=== PATIENT | female | born 1985 | race Caucasian/White ===

== ENCOUNTER → 2020-02-03 10:52 | Outpatient (CLI) | payer OTHER, SELFPAY ==
--- NOTE | ~2020-02-03 | XR_ITS ---
XR chest 2V DATE: 02/03/2020 11:24 INDICATION: Chest pain TECHNIQUE: 2 views COMPARISON: 09/18/2018 two-view chest FINDINGS: Normal heart size. No hilar or mediastinal enlargement. No pulmonary infiltrate or consolid ation, pleural effusion or pulmonary vascular congestion or pneumothorax. Right upper quadrant surgic al clips likely secondary to cholecystectomy. IMPRESSION: No active cardiopulmonary disease Reviewed, dictated and finalized at location B.
== END ==
PROVIDERS: PCP Family Medicine; Visit Provider Physician Assistant Medical
DX: R07.9 Chest pain, unspecified (principal)
CPT/HCPCS: 71046

== ENCOUNTER 2020-02-06 06:35 | Outpatient (CLI) | payer OTHER, SELFPAY ==
--- NOTE | 2020-02-06 | EST_ITS ---
Patient Info Name: Sandy Flor Age: 34 years : 1985 Gender: Female Ht: 68 in Wt: 218 lbs BSA: 2.21 m2 HR: 72 bpm BP: 118 / 68 mmHg Heart Rhythm: Sinus Rhythm Exam Date: 02/06/2020 1:41 PM Patient Status: Outpatient Admit Date: 02/06/2020 Staff Ordering Physician: Leydi Baeza Attending Provider: Leydi Baeza Exercise Technologist: Marycruz Landin RDCS Exercise Physician: Gideon Lucas DO Exam Type: CA stress test treadmill Study Info An exercise stress test was performed. Summary 1. 1. Negative Antonio exercise stress test for ischemic ST changes by ECG criteria. 2. 2. Good functional capacity, achieving 12 METs of workload. 3. 3. Appropriate HR response to exercise. 4. 4. Appropriate HR recovery at 1 minute post exercise. 5. 5. No imaging with stress testing. 6. 6. Patient informed of the above results. Protocol: Antonio Rest HR: 68 bpm Peak HR: 174 bpm Rest Sys BP: 118 mmHg Peak Sys BP: 189 mmHg Max Pred HR: 184 bpm % Max Pred HR: 95 % Target HR: 156 bpm Max RPP: 32,886 bpm*mmHg Termination Reason: Reached target heart rate or workload Cardiac Symptoms: Shortness of breath Total Time: 10 min : 0 sec Rest Dunne BP: 68 mmHg Peak Dunne BP: 80 mmHg Total METS: 12.1 Resting ECG Sinus rhythm. Stress ECG No ST changes. Arrhythmias None. Report Signatures
--- NOTE | 2020-02-06 06:40 | ECHO_ITS ---
Patient Info Name: Sandy Flor Age: 34 years : 1985 Gender: Female Ht: 68 in Wt: 218 lbs BSA: 2.21 m2 HR: 72 bpm BP: 118 / 68 mmHg Technical Quality: Fair Exam Date: 02/06/2020 7:06 AM Exam Location: [facility] Pulmonary Patient Status: Outpatient Admit Date: 02/06/2020 Staff Ordering Physician: Leydi Baeza PAC Web Application Tester: Marycruz Landin RDCS Attending Provider: REKHA HICKS DO Referring Physician: Aryan WILSON; Exam Type: CA echo doppler color flow Study Info Indications R07.89 - Other chest pain Complete two-dimensional, color flow and Doppler transthoracic echocardiogram is performed. Summary 1. Left ventricular chamber dimension is normal. 2. Left ventricular systolic function is normal, estimated at 60-65%. 3. The left ventricular diastolic function is normal. 4. E/e' 7 is not elevated. 5. Global longitudinal strain is mildly abnormla t -16.2%. 6. There is trace mitral valve regurgitation. 7. There is trace tricuspid valve regurgitation. 8. No pulmonary hypertension, estimated pulmonary arterial systolic pressure is 24 mmHg. Left Ventricle E/e' 7 is not elevated. Global longitudinal strain is mildly abnormla t -16.2%. Left ventricular chamber dimension is normal. Left ventricular systolic function is normal, estimated at 60-65%. The left ventricular diastolic function is normal. Right Ventricle Right ventricular chamber dimension is normal. Right ventricular systolic function is normal. Left Atria Left atrial chamber dimension is normal. Right Atria Right atrial chamber dimension is normal. Aortic Valve The aortic valve is trileaflet. There is no aortic valve stenosis. There is no aortic valve regurgitation. Pulmonic Valve There is no pulmonic regurgitation. Mitral Valve There is no mitral valve stenosis. There is trace mitral valve regurgitation. Tricuspid Valve There is trace tricuspid valve regurgitation. No pulmonary hypertension, estimated pulmonary arterial systolic pressure is 24 mmHg. Pericardium/Pleural There is no pericardial effusion. Inferior Vena Cava Normal inferior vena cava with >50% collapse upon inspiration consistent with normal right atrial pressure, 5 mmHg. Aorta The aortic root size at the sinus of Valsalva is normal. Left Ventricular Outflow Tract Name Value Normal LVOT 2D LVOT Diameter 2.0 cm LVOT Doppler LVOT Peak Gradient 4 mmHg LVOT Mean Gradient 2 mmHg LVOT VTI 22 cm LVOT VTI/AV VTI Ratio 0.8 LVOT Stroke Volume 69 ml LVOT CO 5.4 l/min LVOT CI 2.4 l/min/m2 Pulmonic Valve Name Value Normal RVOT Doppler RVOT Peak Gradient 3 mmHg
== END 2020-02-06 06:36 | disposition home or self-care (01) ==
LOC: ANHCARD 06:38
PROVIDERS: PCP Family Medicine; Visit Provider Physician Assistant Medical
DX: R01.1 Cardiac murmur, unspecified (principal); R07.9 Chest pain, unspecified; R94.31 Abnormal electrocardiogram [ECG] [EKG]
CPT/HCPCS: 93017; 93306

== ENCOUNTER 2022-10-31 10:00 | Emergency (ER) | payer OTHER, SELFPAY ==
[2022-10-31 10:14] VITALS: BP 148/97; PULSE 72; RESP 16; TEMP 37.6; O2SAT 100
--- NOTE | 2022-10-31 10:46 | ED.WOUNDLAC ---
HPI - Wound/Laceration General Chief Complaint: Wound/Laceration Stated Complaint: ingrown toenail Time Seen by Provider: 10/31/22 11:00 Source: patient and RN notes reviewed Mode of arrival: ambulatory Limitations: no limitations History of Present Illness HPI narrative: 36-year-old female presents with multiple complaints. She reports pain, redness, swelling next to the nail bed of the 4th digit of the right hand, she believes she had an ingrown nail. She also reports a red itchy spot on her abdomen that opened up after shaving several weeks ago. She reports spot on her abdomen is not painful but has a strange smell. Related Data Home Medications Medication Instructions Recorded Confirmed aspirin 81 mg tablet,delayed 81 mg PO DAILY 11/22/21 10/31/22 release (Adult Low Dose Aspirin) Allergies Allergy/AdvReac Type Severity Reaction Status Date / Time amoxicillin Allergy Mild ITCHING Verified 10/31/22 10:56 clavulanic acid Allergy Mild ITCHING Verified 10/31/22 10:56 lisinopril AdvReac Intermediate Headaches Verified 10/31/22 10:56 Review of Systems Review of Systems: CONSTITUTIONAL: Denies malaise, chills, sweats, or fever. SKIN: Reports redness, swelling, tenderness next to the nail bed of the 4th digit of the right hand. Reports a red itchy spot with foul-smelling drainage to her abdomen All systems reviewed & are unremarkable except as noted in HPI and below PMFSH Past Medical History Medical History (Updated 10/31/22 @ 11:16 by Dang De La Garza NP) Adult BMI 33.0-33.9 kg/sq m BMI 29.0-29.9,adult BMI 30.0-30.9,adult BMI 31.0-31.9,adult BMI 32.0-32.9,adult BMI 34.0-34.9,adult Tobacco abuse Surgical History Surgical History H/O: hysterectomy Family History Family History Father Family history of diabetes mellitus in first degree relative Diabetes mellitus Mother Diabetes mellitus Heart disease Hypertension Sibling Obesity Sibling Asthma Obesity Sibling Depression Other Family history of cardiovascular disease Family history of elevated blood lipids Family history of lung cancer Social History Social History (Updated 04/11/22 @ 16:44 by Khadijah Rivers [facility]) Smoking packs per day: 0.25 Smoking cigarettes per day: 5.0 Years smoked: 15 Smoking pack-years: 3.75 Smoking status: Current every day smoker Tobacco type: cigarettes Second hand tobacco smoke exposure: No Smoking end date: 08/22/21 Alcohol intake: never Substance use: never Substance use type: does not use 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 There is no relevant family history pertinent to the presenting complaint Exam Narrative: GENERAL: Well-appearing, well-nourished, and in no acute distress. HEAD: Normocephalic, atraumatic. EYES: PERRLA ENT: Mucous membranes moist NECK: Supple. No lymphadenopathy CHEST: Clear to auscultation. No respiratory distress. HEART: Regular rate and rhythm. SKIN: Warm, dry. 2 cm x 1 cm erythematous area on the abdomen. Erythema, edema, tenderness next to the nail bed of the 4th digit of the right hand consistent with paronychia NEURO: Alert and oriented x3. PSYCH: Normal mood and affect Course Course Emergency Course: Patient is aware of diagnosis, understands and agrees to treatment plan. Anticipatory guidance given. Patient agrees to follow-up as directed and is aware of reasons to seek care at the emergency department. Portions of this record may have been created with voice recognition software Level of Care: Express Care Visit Vital Signs Vital signs: Vital Signs Temperature 99.6 F 10/31/22 10:14 Pulse Rate 72 10/31/22 10:14 Respiratory R
== END 2022-10-31 11:23 | disposition home or self-care (01) ==
PROVIDERS: Emergency Provider Nurse Practitioner; PCP Family Medicine
DX: L03.011 Cellulitis of right finger (principal); B35.4 Tinea corporis; Z87.891 Personal history of nicotine dependence; Z79.82 Long term (current) use of aspirin
CPT/HCPCS: 99213; G0463

== ENCOUNTER 2023-02-16 10:09 | Emergency (ER) | payer OTHER, SELFPAY ==
--- NOTE | ~2023-02-16 | XR_ITS ---
EXAMINATION: XR tibia fibula LT 2V DATE: 02/16/2023 11:03 INDICATION: Left lower leg pain. TECHNIQUE: 2 views of left tibia and fibula were obtained. COMPARISON: None. FINDINGS: Bone alignment is normal. No fracture. Joint spaces are well maintained. IMPRESSION: 1. Normal left tibia and fibula. Reviewed, dictated and finalized at location A.
[2023-02-16 10:35] VITALS: BP 142/92; PULSE 63; RESP 20; TEMP 36.7; O2SAT 100
--- NOTE | 2023-02-16 11:23 | ED.LOWEXIN ---
HPI - Extremity Injury (Lower) General Chief Complaint: Extremity Injury, Lower Stated Complaint: left leg injury Time Seen by Provider: 02/16/23 10:45 Source: patient Mode of arrival: ambulatory Limitations: no limitations History of Present Illness HPI Narrative: Patient is a 37-year-old female that presents with left goldberg pain that started after falling onto a curb on Monday. Reports mild point tenderness but states she has sharp shooting pain with walking. Denies being a runner. Pain has not improved with taking ibuprofen daily. Related Data Home Medications Medication Instructions Recorded Confirmed aspirin 81 mg tablet,delayed 81 mg PO DAILY 11/22/21 12/12/22 release (Adult Low Dose Aspirin) Allergies Allergy/AdvReac Type Severity Reaction Status Date / Time amoxicillin Allergy Mild ITCHING Verified 12/12/22 07:17 clavulanic acid Allergy Mild ITCHING Verified 12/12/22 07:17 lisinopril AdvReac Intermediate Headaches Verified 12/12/22 07:17 Review of Systems Review of Systems: All systems reviewed & are unremarkable except as noted in HPI and below Constitutional: Constitutional: Denies body ache(s), Denies fever(s), Denies headache(s), Denies malaise and Denies weakness Eyes: Eyes: Denies loss of vision ENT: Denies otalgia, Denies headache(s), Denies nasal discharge, Denies sinus pain and Denies sore throat Cardiovascular: Cardiovascular: Denies chest pain, Denies irregular heart rhythm and Denies dyspnea Respiratory: Respiratory: Denies dyspnea Gastrointestinal: Gastrointestinal: Denies abdominal pain, Denies melena, Denies hematochezia, Denies diarrhea, Denies nausea and Denies vomiting Musculoskeletal: Musculoskeletal: Denies back pain, Denies myalgias, Denies arthralgias and Reports other (Left goldberg pain) Integumentary/Breasts: Skin/Breast: Denies pruritus and Denies rash Neurologic: Denies headache(s), Denies loss of vision and Denies weakness Psychiatric: Psychiatric: Reports no additional psychiatric complaints PMFSH Past Medical History Medical History Adult BMI 33.0-33.9 kg/sq m BMI 29.0-29.9,adult BMI 30.0-30.9,adult BMI 31.0-31.9,adult BMI 32.0-32.9,adult BMI 34.0-34.9,adult Tobacco abuse Surgical History Surgical History H/O: hysterectomy Family History Family History Father Family history of diabetes mellitus in first degree relative Diabetes mellitus Mother Diabetes mellitus Heart disease Hypertension Sibling Obesity Sibling Asthma Obesity Sibling Depression Other Family history of cardiovascular disease Family history of elevated blood lipids Family history of lung cancer Social History Social History Smoking packs per day: 0.25 Smoking cigarettes per day: 5.0 Years smoked: 15 Smoking pack-years: 3.75 Smoking status: Former smoker Tobacco type: cigarettes Second hand tobacco smoke exposure: No Smoking end date: 08/22/21 Alcohol intake: never Substance use: never Substance use type: does not use Living arrangements: with family Occupation/Education: occupation 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 There is no relevant family history pertinent to the presenting complaint. Exam Const: General: cooperative, healthy appearing, comfortable, no acute distress and well nourished Nutritional Appearance: well nourished Orientation/consciousness: patient oriented x3 Limitations: no limitations HENMT: Head: normal to inspection, normocephalic and atraumatic Ears: external ears normal Face/Nose/Sinus: Normal external
== END 2023-02-16 11:47 | disposition home or self-care (01) ==
PROVIDERS: Emergency Provider Nurse Practitioner Family; PCP Family Medicine
DX: M79.662 Pain in left lower leg (principal); Z87.891 Personal history of nicotine dependence; Z79.82 Long term (current) use of aspirin
CPT/HCPCS: 73590; 99213; G0463

== ENCOUNTER 2025-01-21 09:54 | Emergency (ER) | payer BC, SELFPAY ==
--- NOTE | ~2025-01-21 | XR_ITS ---
Clinical Indication: Chest pain PA and lateral views of the chest: Comparison: 02/03/2020 Findings: The lungs are clear, without evidence of focal consolidation or pleural effusion. Cardiome diastinal silhouette is within normal limits. Bones and soft tissues are unremarkable. Impression: Normal chest. Reviewed, dictated and finalized at location . Impression: Normal chest.
[2025-01-21 10:04] VITALS: BP 155/97; PULSE 84; RESP 16; TEMP 37; O2SAT 100
--- NOTE | 2025-01-21 10:10 | ECG_ITS ---
Test Date: 2025-01-21 10:25:09 Measurements Intervals [place] Rate: 71 P: 56 UT: 136 QRS: 37 QRSD: 83 T: 28 QT: 401 QTc: 437 Interpretive Statements SINUS RHYTHM WITH SINUS ARRHYTHMIA OTHERWISE NORMAL ECG No previous ECG available for comparison Electronically Signed On 01-22-2025 12:03:46 CDT by Jesse Garcia M.D.
[2025-01-21 10:21] LABS: Basophils Percent Auto 0.3 % (0.2-1.2); Eosinophils Absolute Auto 0.2 K/mm3 (0-0.3); Eosinophils Percent Auto 1.5 % (0-4.4); Hematocrit 41.9 % (37.0-47.0); Hemoglobin 14.6 g/dL (12.0-15.0); Immature Granulocyte Absolute 0.02 K/mm3 (0.00-0.031); Immature Granulocyte Percent A 0.2 % (0-0.5); Lymphocytes Absolute Auto 2.15 K/mm3 (0.9-3.2); Lymphocytes Percent Auto 20.4 % (18.3-44.2); Mean Corpuscular HGB Conc 34.8 g/dl (32-36); Mean Corpuscular Hemoglobin 30.8 pg (26-34); Mean Corpuscular Volume 88.4 fl (80-100); Mean Platelet Volume 9.8 fl (7.4-10.4); Monocytes Absolute Auto 0.5 K/mm3 (0.1-0.6); Monocytes Percent Auto 5.1 % (2.6-8.5); Neutrophils Absolute Auto 7.7 K/mm3 (1.3-6.7); Neutrophils Percent Auto 72.5 % (45.5-73.1); Platelet Count Result 258 k/mm3 (150-375); Red Blood Count 4.74 M/mm3 (4.2-5.4); Red Cell Distribution Width 11.6 % (11.5-14.5); White Blood Count 10.6 K/mm3 (4.5-10.0)
[2025-01-21 10:32] LABS: INR 0.9; Prothrombin Time 12.7 Seconds (11.1-14.7)
[2025-01-21 10:33] LABS: Partial Thromboplastin Time 25.4 Seconds (22.3-36.8)
[2025-01-21 10:35] LABS: Alanine Aminotransferase 22 U/L (6-35); Albumin Level 4.5 g/dL (3.5-5.1); Alkaline Phosphatase 55 U/L (38-126); Anion Gap 11 mmol/L (4-12); Aspartate Amino Transferase 21 U/L (14-36); Bilirubin,Total 0.3 mg/dL (0.2-1.3); Blood Urea Nitrogen 7 mg/dL (7-17); Calcium 9.4 mg/dL (8.4-10.2); Carbon Dioxide 25 mmol/L (22-30); Chloride 102 mmol/L (98-107); Estimated CRCL calculation 78 ml/min; Estimated Glomerular Filt Rate 60; Glucose 100 mg/dL (65-110); Lipase 43 U/L (23-300); Potassium 3.8 mmol/L (3.4-5.0); Sodium 138 mmol/L (137-145)
[2025-01-21 10:47] LABS: Troponin I < 0.012 ng/mL (0.000-0.034)
--- OUTSIDE RECORDS SUMMARY | 2025-01-21 10:57 | XMS_ITS | Clinical Summary ---
Author Organization [facility] Address [address] [place] [address] Care Team Providers Care Loading Unit Operator Seating Name Role Phone None, Provider MD Primary Care Provider Unavaila ble Allergies No known active allergies Medications albuterol sulfate HFA 108 (90 Base) MCG/ACT inhaler Inhale 2 puffs into the lungs every 6 (six) hours as needed for Wheezing. 18 g 10/27/2024 Active Encounters Date Type Department Care Team Description 10/27/2024 9:18 AM CAFETERIA CLERK - 10/27/2024 10:49 AM CAFETERIA CLERK Emergency [facility] Emergency Room [id number] [place] [address] Grupo Causey MD URI Discharge Disposition: Home or Self Care (Routine Discharge) 10/27/2024 Travel from Last 3 Months Social History Tobacco Use Types Packs/Day Years Used Date Smoking Tobacco: Never Passive Smoke Exposure: Never Smokeless Tobacco: Never Tobacco Cessation:Counseling Given: Not Answered Alcohol Use Standard Drinks/Week Comments Not Currently 0 (1 standard drink = 0.6 oz pur e alcohol) Comments Unknown Sex and Gender Information Value Date Recorded Sex Assigned at Not on file Legal Sex Female 6:23 PM CDT Gender Identity Not on file Sexual Orientation Not on file Last Filed Vital Signs Vital Sign Reading Time Taken Comments Blood Pressure 136/77 10/27/2024 9:24 AM CAFETERIA CLERK Pulse 88 10/27/2024 9:24 AM CAFETERIA CLERK Temperature 37.8 C (100 F) 10/27/2024 9:24 AM CAFETERIA CLERK Respiratory Rate 18 10/27/2024 9:24 AM CAFETERIA CLERK Oxygen Saturation 99% 10/27/2024 9:24 AM CAFETERIA CLERK Inhaled Oxygen Concentration - - Weight 80.7 kg (177 lb 14.6 oz) 10/27/2024 9:24 AM CAFETERIA CLERK Height 168.9 cm (5' 6.5 ) 10/27/2024 9:24 AM CAFETERIA CLERK Body Mass Index 28.29 10/27/2024 9:24 AM CAFETERIA CLERK Plan of Treatment Health Maintenance Due Date Last Done Comments Annual Physical 1986 DTaP, Tdap and Td Vaccines ( 1 - Tdap) 2002 Hepatitis B Vaccines (1 of 3 - 19+ 3-dose series) 2002 COVID-19 Vaccine (2023-2 5 season) 2024 07/19/2021, 06/19/2021 Influenza Adult (#1) 2024 08/06/2023, 08/07/2022, 08/06/2021 Mammogram Screening 09/10/2026 09/10/2024 Hepatitis C Completed 10/18/2024, 10/18/2024 HPV Vaccines Aged Out No longer eligi ble based on patient's age to complete this topic Meningococcal B Vaccine Aged Out No l onger eligible based on patient's age to complete this topic Meningococcal Vaccine Aged Out No aubrie miguel angel eligible based on patient's age to complete this topic Pneumococcal Vaccine: Pediatrics (0 to 5 Years) and At-Risk Patients (6 to 64 Years) Aged Out No longer eligible b ased on patient's age to complete this topic RSV Immunizations Under 20 Months Aged Out No longer eligible b ased on patient's age to complete this topic Procedures Procedure Name Priority Date/Time Associated Diagnosis Comments XR CHEST PA+LAT STAT 10/27/2024 10:22 AM CAFETERIA CLERK INFLUENZA A & B STAT 10/27/2024 9:23 AM CAFETERIA CLERK CORONAVIRUS (COVID 19) STAT 10/27/2024 9:23 AM CAFETERIA CLERK from Last 3 Months Results * XR CHEST PA+LAT (10/27/2024 10:22 AM CAFETERIA CLERK) Anatomical Region Laterality Modality Chest Radiographic Lissa ging 10/27/2024 10:2 4 AM CAFETERIA CLERK Impressions 10/27/2024 10:26 AM CAFETERIA CLERK IMPRESSION: Evolving/developing pneumonia with patchy right middle lobe airspace opacities. No focal consolidation or effusion. Referred By: Interpreted By: Mata Newman MD, 10/27/2024 10:24 AM Narrative 10/27/2024 10:26 AM CAFETERIA CLERK [address] [place] [address] EXAMINATION: XR CHEST PA+LAT INDICATIONS: Cough, SOB COMPARISON: NONE FINDINGS: Frontal and lateral chest radiographs demonstrate normal lung expansion with patchy right infrahilar airspace opacities which partially obscure the right heart margin and right hemidiaphragm. No consolidation, effusion, or pneumothorax. No bulky hilar adenopathy. Heart size is normal. Cholecystectomy clips within the right upper quadrant. No acute or aggressive osseous abnormality. Procedure Note Mata Newman MD - 10/27/2024 [facility] [address] [place] [address] EXAMINATION: XR CHEST PA+LAT INDICATIONS: Cough, SOB COMPARISON: NONE FINDINGS: Frontal and lateral chest radiographs demonstrate normal lung expansionwith patchy right infrahilar airspace opacities which partially obscurethe right heart margin and right hemidiaphragm. No consolidation, effusion, or pneumothorax. No bulky hilar adenopathy. Heart size is normal. Cholecystectomy clips within the right upper quadrant. No acute or aggressive osseous abnormality. IMPRESSION: Evolving/developing pneumonia with patchy right middle lobeairspace opacities. No focal consolidation or effusion. Referred By: Interpreted By: Mata Newman MD, 10/27/2024 10:24 AM Grupo Causey MD GENERAL IMAGING Final R esult * CORONAVIRUS (COVID-19) MOLECULAR (10/27/2024 9:23 AM CAFETERIA CLERK) CORONAVIRUS SARS COV 2 RNA NEGATIVE NEGATIVE 10/27/2024 10:11 AM CAFETERIA CLERK [facility] Comment: NEGATIVE RESULTS DO NOT RULE OUT COVID 19 AND SHOULD NOT BE USED THE SOLE BASIS FOR TREATMENT OR PATIENT MANAGEMENT DECISIONS, INCLUDING INFECTION CONTROL DECISIONS. NEGATIVE RESULTS SHOULD BE CONSIDERED IN THE CONTEXT OF A PATIENT'S RECENT EXPOSURES, HISTORY AND THE PRESENCE OF CLINICAL SIGNS AND SYMPTOMS CONSISTENT WITH COVID 19. THE ID NOW COVID-19 2.0 TEST HAS BEEN AUTHORIZED BY THE FDA UNDER EAU FOR USE BY AUTHORIZED LABORATORIES. PERFORMED BY NUCLEIC ACID AMPLIFICATION FOR MOLECULAR QUALITATIVE DETECTION OF SARS-COV-2. SPECIMEN TYPE NASAL 10/27/2024 9:23 AM CAFETERIA CLERK [facility] NASOPHARYNGEAL SWAB / Unknown 10/27/2024 9:23 AM CAFETERIA CLERK Grupo Causey MD MICROBIOLOGY - GENERAL ORDERABLES Final Result Performing Organization Address [facility]/ZIP Co de Phone Number [facility] [address] [place] [address], [place] [phone] * (ABNORMAL) INFLUENZA A & B (10/27/2024 9:23 AM CAFETERIA CLERK) SPECIMEN TYPE NASOPHARYNGEAL SWAB 10/27/2024 10:02 AM CAFETERIA CLERK [facility] INFLUENZA A NEGATIVE NEGATIVE 10/27/2024 10:11 AM CAFETERIA CLERK [facility] INFLUENZA B POSITIVE(A) NEGATIVE 10/27/2024 10:11 AM CAFETERIA CLERK [facility] NASOPHARYNGEAL SWAB / Unknown 10/27/2024 9:23 AM CAFETERIA CLERK Grupo Causey MD MICROBIOLOGY - GENERAL ORDERABLES Final Result Performing Organization Address [facility]/ZIP Co de Phone Number [facility] [address] [place] [address], [place] [phone] from Last 3 Months Insurance Care Teams Loading Unit Operator Seating Relationship Specialty Start Date End Date None, Provider, PCP - General UNKNOWN PHYSICIAN SPECIALTY 10/27/24
--- OUTSIDE RECORDS SUMMARY | 2025-01-21 10:57 | XMS_ITS | Encounter Summary ---
Author Organization [facility] Address 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 Gender Identity Not on file Sexual Orientation Not on file documented as of this encounter Plan of Treatment Not on file documented as of this encounter Procedures Procedure Name Priority Date/Time Associated Diagnosis Comments HEMOGLOBIN AND HEMATOCRIT Routine 06/15/2005 6:49 AM CDT POC , URINE Routine 06/15/2005 6:49 AM CDT documented in this encounter Results * POC , URINE (06/15/2005 6:49 AM CDT) HCG QUAL URINE Negative Negative INTER FACE SYSTEM SPECIFIC GRAVITY UA 1.020 1.001 - 1.035 INTERFACE SYSTEM 06/15/2005 6:49 AM CDT Jaime Sweeney MD POINT OF CARE TESTING Final Result INTERFACE SYSTEM Refer to clinic/hospital department * HEMOGLOBIN AND HEMATOCRIT (06/15/2005 6:49 AM CDT) HEMOGLOBIN 14.0 11.8 - 14.8 g/dL INTERFACE SYSTEM HEMATOCRIT 39.7 35.5 - 44.0 % INTERFACE SYSTEM 06/15/2005 6:49 AM CDT Jaime Sweeney MD HEMATOLOGY ORDERABLES Final Result Performing Organization Address [facility] Co de Phone Number INTERFACE SYSTEM Refer to clinic/hospital department documented in this encounter Visit Diagnoses Diagnosis Hypertrophy of breast- Primary documented in this encounter Care Teams Social And Political Studies Professor Relationship Specialty Start Date End Date Domenic Elliott MD [address] [place] [address] PCP - General Family Practice 02/18/20 documented as of this encounter
--- OUTSIDE RECORDS SUMMARY | 2025-01-21 10:57 | XMS_ITS | Clinical Summary ---
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 Gender Identity Not on file Sexual Orientation Not on file Plan of Treatment Health Maintenance Due Date Last Done Comments Hepatitis C Virus (HCV) Screening 1985 TdaP Immunization 1985 Hepatitis B Immunization (1 of 3 - 19+ 3-dose series) 2002 Pap Smear 2004 Cervical Cancer Screening (CCS) 2013 HPV/Cotest 2013 Discussion re Starting/Frequ ency of Mammograms 2023 Influenza Immunization (#1) 2024 SARS-COV-2 Immunization (2023- season) 2024 Respiratory Syncytial Virus (RSV) Immunization (Adult) (1 - 1-dose 75+ series) 2058 Meningococcal Immunization (ACWY) Aged Out No longer eligible based on patient's age to complete this topic Pneumococcal Immunization Combined Aged Out No longer eligible based on patient's age to complete this topic Rotavirus Immunization Aged Out No lo nger eligible based on patient's age to complete this topic
--- OUTSIDE RECORDS SUMMARY | 2025-01-21 10:57 | XMS_ITS | Clinical Summary ---
Author Organization [address] lt Address [address] [place] [address] Care Team Providers Care Tool Distributor Name Role Phone Nickolas Tony MD Primary Care Provider [phone] Allergies No known active allergies Medications metoprolol XL (TOPROL-XL) 50 mg extended release tabletIndicatio ns:Hypertension , essential Take 1 tablet (50 mg total) by mouth daily 90 tablet 4 03/27/2023 Active amLODIPine (NORVASC) 5 mg tabletIndicatio ns:Hypertension , essential Take 1 tablet (5 mg total) by mouth daily 90 tablet 4 03/27/2023 Active aspirin 81 mg enteric coated tablet Take 1 tablet (81 mg total) by mouth daily Active ergocalciferol (VITAMIN D) 50,000 unit capsuleIndicati ons:Vitamin D deficiency Take 1 capsule (50,000 Units total) by mouth once a week 12 capsule 4 12/19/2023 Active buPROPion XL (WELLBUTRIN XL) 150 mg 24 hr tabletIndicatio ns:Anxiety Take 1 tablet (150 mg total) by mouth every morning 90 tablet 1 06/17/2024 Active fluconazole (Diflucan) 150 mg tablet 1 tablet, one time only, may repeat once after 4 days 2 tablet 11/01/2024 Active Active Problems Problem Noted Date Diagnosed Date Low TSH level 10/18/2024 Assessment & Plan (10/18/2024 12:10 PM OPERATIONS CLERK): Abnormality seen on last work up in 12/30, will repeat at this time and follow up on results Polycythemia 01/16/2024 Annual physical exam 04/26/2023 Assessment & Plan (04/26/2023 10:30 AM CDT): Voices no concerns or complaints Hypertension, essential 03/27/2023 Assessment & Plan (10/18/2024 9:03 AM OPERATIONS CLERK): - Stable and at goal - Continue Metoprolol 50 mg daily and Amlodipine 5 mg daily Assessment & Plan (01/16/2024 2:40 PM CDT): Stable, well controlled BP at goal at visit; 112/76 Continue Metoprolol 50 mg daily and Amlodipine 5 mg daily Assessment & Plan (12/15/2023 1:00 PM OPERATIONS CLERK): Stable, well controlled BP at goal at visit; 122/78 Continue Metoprolol 50 mg daily and Amlodipine 5 mg daily Assessment & Plan (03/27/2023 2:15 PM CDT): Continue Toprol 50 mg and amlodipine 5 mg daily Anxiety 03/27/2023 Assessment & Plan (10/18/2024 9:02 AM OPERATIONS CLERK): - much improved, no issues at this time - continue Wellbutrin 150 mg daily Assessment & Plan (01/16/2024 2:38 PM CDT): Stop Lexapro; felt numb; no feelings/emotions Did not like how Xanax made her feel; BuSpar made her extremely tired Start Wellbutrin 150 mg daily Follow up 8 weeks Assessment & Plan (12/15/2023 12:59 PM OPERATIONS CLERK): Not well controlled, has been having increased anxiety Feels like nothing is going right; has become more emotional Has some work stressors, family stressors have improved Start Lexapro 10 mg daily and Xanax 0.25 mg TID PRN; increase Buspar 10 mg TID PRN Follow up 4 weeks Assessment & Plan (04/26/2023 10:30 AM CDT): Stable, well-controlled Continue BuSpar 5 mg t.i.d. anxiety Follow-up six-month Assessment & Plan (03/27/2023 2:16 PM CDT): BuSpar 5 mg t.i.d. p.r.n. for anxiety Follow-up in 1 month Resolved Problems Problem Noted Date Diagnosed Date Resolved Date Non-recurrent acute suppurat julissa otitis media of right ear without spontaneous rupture of tympanic membrane 03/27/2023 04/26/2023 Assessment & Plan (03/27/2023 2:13 PM CDT): Rx for Augmentin sent to pharmacy Bacterial sinusitis 03/27/2023 04/26/20 Assessment & Plan (03/27/2023 2:13 PM CDT): Rx for Augmentin sent to pharmacy Antibiotic-induced yeast infection 03/27/2023 04/26/2023 Assessment & Plan (03/27/2023 2:14 PM CDT): Rx for fluconazole for antibiotic induced yeast infection sent to pharmacy Encounters Date Type Department Care Team Description 11/01/2024 8:15 AM OPERATIONS CLERK E-Visit [facility] Virtual Care [address] [place] [phone] Essie Ramirez NP Your Medications 11/01/2024 Patient Self-Triage [facility]/ Physicians [address] [place] [id number] Mychart, Generic Provider from Last 3 Months Immunizations Immunization Administration Dates Next Due Influenza, Unspecified 10/18/2024(Deferr ed: Patient Refused),08/06/2023,03/27/2023(Deferred: Patient Refused),08/07/2022,08/06/2021 Surgical History Surgery Date Site/Laterality Comments CHOLECYSTECTOMY HYSTERECTOMY SECTION REDUCTION MAMMAPLASTY Medical History Medical History Date Comments Hypertension Diverticulitis Polycythemia Family History Medical History Relation Name Comments Diabetes Father Breast cancer Maternal Grandmother Pancreatic cancer Maternal Grandmother Diabetes Mother Heart disease Mother Hypertension Mother Ovarian cancer Mother Thyroid disease Mother Relation Name Status Comments Father Maternal Grandmother Mother Social History Tobacco Use Types Packs/Day Years Used Date Smoking Tobacco: Former Cigarettes Q uit: 2019 Humiliation, Afraid, Rape, and Kick questionnair e Answer Date Recorded Within the last year, have y ou been afraid of your partner or ex-partner? No 04/26/2023 Within the last year, have y ou been humiliated or emotionally abused in other ways by your partner or ex-partner? No Within the last year, have y ou been kicked, hit, slapped, or otherwise physically hurt by your partner or ex-partner? No 04/26/2023 Within the last year, have y ou been raped or forced to have any kind of sexual activity by your partner or ex-partner? No 04/26/2023 Social Connection and Isolat ion Panel [NHANES] Answer Date Recorded In a typical week, how many times do you talk on the phone with family, friends, or neighbors? More than three times a week 04/26/2023 How often do you get togethe r with friends or relatives? More than three times a week 04/26/2023 How often do you attend chur ch or episcopalian services? More than 4 times per year 04/26/2023 Do you belong to any clubs o r organizations such as pentecostal groups, unions, fraternal or athletic groups, or school groups? Yes 04/26/2023 How often do you attend meet ings of the clubs or organizations you belong to? More than 4 times per year 04/26/2023 Are you , , di vorced, , never , or living with a partner? 04/26/2023 AUDIT-C Answer Date Recorded Q1: How often do you have a drink containing alc ohol? Monthly or less 04/26/2023 Q2: How many drinks containi ng alcohol do you have on a typical day when you are drinking? 1 or 2 04/26/2023 Q3: How often do you have si x or more drinks on one occasion? Never 04/26/2023 Overall Financial Resource Strain (CARDIA) Answe r Date Recorded How hard is it for you to pa y for the very basics like food, housing, medical care, and heating? Not hard at all 04/26/2023 PHQ-2 Answer Date Recorded PHQ-2 Total Score (If total score is 3 or more points, staff should administer the PHQ-9) 0 10/18/2024 [facility] - Occupational Stress Questionnaire Answer Date Recorded Do you feel stress - tense, restless, nervous, or anxious, or unable to sleep at night because your mind is troubled all the time - these days? Only a little 04/26/2023 Exercise Vital Sign Answer Date Recorde d On average, how many days pe r week do you engage in moderate to strenuous exercise (like a brisk walk)? 3 days 04/26/2023 On average, how many minutes do you engage in exercise at this level? 50 min 04/26/2023 Hunger Vital Sign Answer Date Recorded Within the past 12 months, y ou worried that your food would run out before you got the money to buy more. Never true 04/26/20 23 Within the past 12 months, t he food you bought just didn't last and you didn't have money to get more. Never true 04/26/2023 PRAPARE - Transportation Answer Date Re corded In the past 12 months, has l ack of transportation kept you from medical appointments or from getting medications? No 04/07 In the past 12 months, has l ack of transportation kept you from meetings, work, or from getting things needed for daily living? No 04/26/2023 Housing Stability Vital Sign Answer Garett e Recorded In the last 12 months, was t here a time when you were not able to pay the mortgage or rent on time? No 04/26/2023 In the last 12 months, how many places have you lived? 1 04/26/2023 In the last 12 months, was t here a time when you did not have a steady place to sleep or slept in a senior care (including now)? No 04/26/2023 Comments No Sex and Gender Information Value Date Recorded Sex Assigned at Not on file Legal Sex Female 10:05 AM OPERATIONS CLERK Gender Identity Female 09/05/2024 5:13 PM CDT Sexual Orientation Straight 09/05/2024 5: 13 PM CDT Obstetrics History Para Term AB IAB SAB Ectopic Multiple Livin g Live Births 2 2 2 Date Outcome GA Total Labor Labor/2nd/3rd Weight Sex Type Anes PTL Leticia A1 A5 Name Clin Term Term Last Filed Vital Signs Vital Sign Reading Time Taken Comments Blood Pressure 120/72 10/18/2024 8:29 AM OPERATIONS CLERK Pulse 75 10/18/2024 8:29 AM OPERATIONS CLERK Temperature 36.4 C (97.5 F) 10/18/2024 8:29 AM OPERATIONS CLERK Respiratory Rate 16 01/16/2024 1:57 PM CDT Oxygen Saturation 98% 10/18/2024 8:29 AM OPERATIONS CLERK Inhaled Oxygen Concentration - - Weight 90.7 kg (200 lb) 10/18/2024 8:29 AM OPERATIONS CLERK Height 172.7 cm (5' 7.99 ) 10/18/2024 8:29 AM CS T Body Mass Index 30.42 10/18/2024 8:29 AM OPERATIONS CLERK Plan of Treatment Health Maintenance Due Date Last Done Comments DTaP/Tdap/Td Vaccine (1 - Tdap) 1994 Covid-19 Vaccine (3 - season) 2024 07/19/2021, 06/19/2021 Influenza Vaccine (#1) 2025 , 08/06/2023, 08/07/2022, Additional history exists Postponed from 07/07/2024 (Patient declined, but will receive in the future) Breast Cancer Screening-Mammogram 09/10/2025 09/10/2024 Depression Screening 10/18/2025 10/18/2024, 01/16/2024, 12/15/2023, Additional history exists Regular Well Visit/Exam 18-64 10/18/2025 10/18/2024, 04/26/2023, 03/27/2023 Hepatitis B Screening Completed 10/18/2024 Hepatitis C Screening Completed 10/18/2024 HPV Vaccines Aged Out No longer eligi ble based on patient's age to complete this topic Pneumococcal vaccine <65 Aged Out No longer eligible based on patient's age to complete this topic Varicella Vaccines Discontinued Procedures Procedure Name Priority Date/Time Associated Diagnosis Comments HEPATITIS C ANTIBODY Routine 10/18/2024 8:55 AM OPERATIONS CLERK Encounter for hepatitis C screening test for low risk patient SCREENING MAMMOGRAM BILATERAL W LILY Schedule Routine, Read Routine (OP Routine) 09/10/2024 11:54 AM OPERATIONS CLERK Screening mammogram for breast cancer from Last 3 Months or Most Recently Relevant to Health Maintenance Results * Hepatitis C antibody Blood (10/18/2024 8:55 AM OPERATIONS CLERK) Hep C Ab Nonreactive Nonreactive Comment: Interpretive Data Nonreactive: Antibodies to HCV not detected. Does NOT exclude the possibility of recent exposure to HCV. Equivocal: Equivocal for HCV antibodies. Supplemental molecular testing will be automatically performed to determine infection status in accordance with current CDC screening recommendations. Reactive: Positive for HCV antibodies. This may represent current or past HCV infection. Supplemental molecular testing will be automatically performed to determine current infection status in accordance with current CDC screening recommendations. Interpretive data was last revised on 2020. Blood 10/18/2024 8:55 AM OPERATIONS CLERK 10/18/2024 4:21 PM OPERATIONS CLERK us Nickolas Tony MD LAB MICROBIOLOGY - GENERA L ORDERABLES Final Result [facility] [address] Department [place] [address] * SCREENING MAMMOGRAM BILATERAL W LILY (09/10/2024 11:54 AM OPERATIONS CLERK) Anatomical Region Laterality Modality Breast Bilateral Mammography 09/10/2024 12:2 4 PM OPERATIONS CLERK Impressions 09/10/2024 12:24 PM OPERATIONS CLERK No evidence of malignancy in either breast. FINAL ASSESSMENT: BI-RADS Category 1: Negative. RECOMMENDATION: Recommend return for annual screening mammogram in 12 months. Recommend annual screening breast MRI given significant family history of mother and grandmother diagnosed with breast and ovarian cancer. Electronically signed by: NELLY VALDEZ MD Narrative 09/10/2024 12:24 PM OPERATIONS CLERK EXAMINATION: BILATERAL SCREENING MAMMOGRAM COMPARISON: Baseline study TECHNIQUE: Full-field 2D and digital breast tomosynthesis (DBT) images were obtained. CAD was utilized. BREAST PARENCHYMAL COMPOSITION: There are scattered areas of fibroglandular density. FINDINGS: There is no suspicious mass, calcification, or distortion in either breast. Consuelo Adam NP IMG MAMMO PROCEDURES Final Resul t from Last 3 Months or Most Recently Relevant to Health Maintenance Insurance [facility] CHOICE PLUS [employer]OS [employer] OOS WORKERS COMPENSATION GENERIC ESIS WC Care Teams Tool Distributor Relationship Specialty Start Date End [place] [address] PCP - General Family Medicine 10/18/24
--- OUTSIDE RECORDS SUMMARY | 2025-01-21 10:57 | XMS_ITS | Referral Summary ---
Author Organization [address] lt Address [address] [place] [address] Care Team Providers Care Cryogenics Repairer Name Role Phone Nickolas Tony MD Primary Care Provider [phone] Encounters Date Type Department Care Team Description 11/01/2024 8:15 AM SHELTER DIRECTOR E-Visit [facility] Virtual Care [address] [place] [phone] Essie Ramirez NP Your Medications 11/01/2024 Patient Self-Triage [facility]/ Physicians [address] [place] [address] Mychart, Generic Provider from Last 3 Months Allergies No known active allergies Medications metoprolol [...] 10/18/2024 Assessment & Plan (10/18/2024 12:10 PM SHELTER DIRECTOR): Abnormality seen on last work up in 12/30, will repeat at this time and follow up on results Polycythemia 01/16/2024 Annual physical exam 04/26/2023 Assessment & Plan (04/26/2023 10:30 AM CDT): Voices no concerns or complaints Hypertension, essential 03/27/2023 Assessment & Plan (10/18/2024 9:03 AM SHELTER DIRECTOR): - Stable and at goal - Continue Metoprolol 50 mg daily and Amlodipine 5 mg daily Assessment & Plan (01/16/2024 2:40 PM CDT): Stable, well controlled BP at goal at visit; 112/76 Continue Metoprolol 50 mg daily and Amlodipine 5 mg daily Assessment & Plan (12/15/2023 1:00 PM SHELTER DIRECTOR): Stable, well controlled BP at goal at visit; 122/78 Continue Metoprolol 50 mg daily and Amlodipine 5 mg daily Assessment & Plan (03/27/2023 2:15 PM CDT): Continue Toprol 50 mg and amlodipine 5 mg daily Anxiety 03/27/2023 Assessment & Plan (10/18/2024 9:02 AM SHELTER DIRECTOR): - much improved, no issues at this time - continue Wellbutrin 150 mg daily Assessment & Plan (01/16/2024 2:38 PM CDT): Stop Lexapro; felt numb; no feelings/emotions Did not like how Xanax made her feel; BuSpar made her extremely tired Start Wellbutrin 150 mg daily Follow up 8 weeks Assessment & Plan (12/15/2023 12:59 PM SHELTER DIRECTOR): Not well controlled, has been having increased [...] antibiotic induced yeast infection sent to pharmacy Immunizations Immunization Administration Dates Next Due Influenza, Unspecified 10/18/2024(Deferr ed: Patient Refused),08/06/2023,03/27/2023(Deferred: Patient Refused),08/07/2022,08/06/2021 Social History Tobacco Use Types Packs/Day Years [...] week 04/26/2023 How often do you attend caro center or tenriism services? More than 4 times per year 04/26/2023 Do you belong to any clubs o r organizations such as evangelical groups, unions, fraternal or athletic groups, or [...] staff should administer the PHQ-9) 0 10/18/2024 [facility] - Occupational Stress [...] place to sleep or slept in a halfway (including now)? No 04/26/2023 Comments No Sex and Gender Information Value Date Recorded Sex Assigned at Not on file Legal Sex Female 10:05 AM SHELTER DIRECTOR Gender Identity Female 09/05/2024 5:13 PM CDT Sexual Orientation Straight 09/05/2024 5: 13 PM CDT Last Filed Vital Signs Vital Sign Reading Time Taken Comments Blood Pressure 120/72 10/18/2024 8:29 AM SHELTER DIRECTOR Pulse 75 10/18/2024 8:29 AM SHELTER DIRECTOR Temperature 36.4 C (97.5 F) 10/18/2024 8:29 AM SHELTER DIRECTOR Respiratory Rate 16 01/16/2024 1:57 PM CDT Oxygen Saturation 98% 10/18/2024 8:29 AM SHELTER DIRECTOR Inhaled Oxygen Concentration - - Weight 90.7 kg (200 lb) 10/18/2024 8:29 AM SHELTER DIRECTOR Height 172.7 cm (5' 7.99 ) 10/18/2024 8:29 AM CS T Body Mass Index 30.42 10/18/2024 8:29 AM SHELTER DIRECTOR Plan of Treatment Not on file Procedures Procedure Name Priority Date/Time Associated Diagnosis Comments HEPATITIS C ANTIBODY Routine 10/18/2024 8:55 AM SHELTER DIRECTOR Encounter for hepatitis C screening test for low risk patient SCREENING MAMMOGRAM BILATERAL W LILY Schedule Routine, Read Routine (OP Routine) 09/10/2024 11:54 AM SHELTER DIRECTOR Screening mammogram for breast cancer from Last 3 Months or Most Recently Relevant to Health Maintenance Results * Hepatitis C antibody Blood (10/18/2024 8:55 AM SHELTER DIRECTOR) Hep C Ab Nonreactive Nonreactive Comment: Interpretive [...] revised on 2020. Blood 10/18/2024 8:55 AM SHELTER DIRECTOR 10/18/2024 4:21 PM SHELTER DIRECTOR us Nickolas Tony MD LAB MICROBIOLOGY - GENERA L ORDERABLES Final Result [facility] [address] [place] [address] * SCREENING MAMMOGRAM BILATERAL W LILY (09/10/2024 11:54 AM SHELTER DIRECTOR) Anatomical Region Laterality Modality Breast Bilateral Mammography 09/10/2024 12:2 4 PM SHELTER DIRECTOR Impressions 09/10/2024 12:24 PM SHELTER DIRECTOR No evidence of malignancy in either breast. FINAL ASSESSMENT: BI-RADS Category 1: Negative. RECOMMENDATION: Recommend return for annual screening mammogram in 12 months. Recommend annual screening breast MRI given significant family history of mother and grandmother diagnosed with breast and ovarian cancer. Electronically signed by: NELLY VALDEZ MD Narrative 09/10/2024 12:24 PM SHELTER DIRECTOR EXAMINATION: BILATERAL SCREENING MAMMOGRAM COMPARISON: Baseline study TECHNIQUE: Full-field 2D and digital breast tomosynthesis (DBT) images were obtained. CAD was utilized. BREAST PARENCHYMAL COMPOSITION: There are scattered areas of fibroglandular density. FINDINGS: There is no suspicious mass, calcification, or distortion in either breast. us Consuelo Adam NP IMG MAMMO PROCEDURES Final Resul t from Last 3 Months or Most Recently Relevant to Health Maintenance Insurance [facility] CHOICE PLUS * Guarantor: Sandy Flor Account Type Relation to Patient Date of Phone Billing Address Personal/Family Self 1985 [address] [place] [address] [email or web address] OOS WORKERS COMPENSATION GENERIC ESIS WC Care Teams Cryogenics Repairer Relationship Specialty Start Date [place] [address] PCP - General Family Medicine 10/18/24
--- OUTSIDE RECORDS SUMMARY | 2025-01-21 10:57 | XMS_ITS | Clinical Summary ---
Author Organization [email or web address] Address [address] [place] [address] Phone Care Team Providers Care Customer Development Representative Name Role Phone Domenic Elliott MD Primary Care Provider [phone] Allergies No known active allergies Medications buPROPion HCL (WELLBUTRIN SR) 150 mg Sustained Release 12 hour tablet 04/10/2021 Active metoprolol succinate (TOPROL XL) 50 mg Extended Release 24 hour tablet 04/10/2021 Active aspirin (ECOTRIN EC) 81 mg Tablet, Delayed Release (E.C.) Take 81 mg by mouth daily. Active Active Problems Problem Noted Date Diagnosed Date Erythrocytosis 03/25/2020 Benign hypertension 03/25/2020 Family History Medical History Relation Name Comments Diabetes Father Heart Disease Mother Relation Name Status Comments Brother 1 Alive Brother 2 Alive Daughter 1 Alive Daughter 2 Alive Father Alive Mother Alive Sister Alive Social History Tobacco Use Types Packs/Day Years Used Date Smoking Tobacco: Every Day Cigarettes 0.5 15 Smokeless Tobacco: Never Comments:Pt. smoked 3 cigari ttes a day Alcohol Use Standard Drinks/Week Comments Never 0 (1 standard drink = 0.6 oz pur e alcohol) Comments No Sex and Gender Information Value Date Recorded Sex Assigned at Not on file Legal Sex Female 5:10 AM SOLAR ENGINEER Gender Identity Not on file Sexual Orientation Not on file Last Filed Vital Signs Vital Sign Reading Time Taken Comments Blood Pressure 142/84 04/14/2021 4:00 PM CDT Pulse 78 04/14/2021 4:00 PM CDT Temperature 37.2 C (99 F) 04/14/2021 4:00 PM CDT Respiratory Rate - - Oxygen Saturation 97% 04/14/2021 4:00 PM CDT Inhaled Oxygen Concentration - - Weight 96 kg (211 lb 9.6 oz) 04/14/2021 4:00 PM CDT Height 172.7 cm (5' 8 ) 04/14/2021 4:00 PM CDT Body Mass Index 32.17 04/14/2021 4:00 PM CDT Plan of Treatment Health Maintenance Due Date Last Done Comments DTAP/TDAP/TD VACCINES (1 - Tdap) 2002 HEPATITIS B VACCINES (1 of 3 - 19+ 3-dose series) 2002 PNEUMOCOCCAL VACCINE 0-49 YE ARS (1 of 2 - PCV) 2002 CERVICAL CANCER SCREENING 2013 BREAST CANCER SCREENING 2023 INFLUENZA VACCINE (#1) 2024 HPV VACCINES Aged Out No longer eligi ble based on patient's age to complete this topic Insurance [facility] [address] [address] Care Teams Customer Development Representative Relationship Specialty Start Date End Date Domenic Elliott MD [address] [place] [id number] PCP - General Family Practice 02/18/20
--- OUTSIDE RECORDS SUMMARY | 2025-01-21 10:57 | XMS_ITS | Clinical Summary ---
Author Organization [facility] Address [address] [place] [address] Care Team Providers Care Petroleum Refinery Operator Name Role Phone Unavailable Primary Care Provider Unavailabl e Source Comments [facility],non-owned Affiliates and Associated Physician Practices is amultiple site organization consisting of ambulatory clinics and hospital sitesin [place], [place], [place] and [place]. This disclosure is being madepursuant to the Care Everywhere program and may not contain all information available regarding this patient. Last updated 18[facility] [place] Allergies No known active allergies Social History Tobacco Use Types Packs/Day Years Used Date Smoking Tobacco: Never Assessed Sex and Gender Information Value Date Recorded Sex Assigned at Not on file Gender Identity Not on file Sexual Orientation Not on file Last Filed Vital Signs Vital Sign Reading Time Taken Comments Blood Pressure 148/85 07/22/2011 3:26 PM CDT Pulse 92 07/22/2011 3:26 PM CDT Temperature 37 C (98.6 F) 07/22/2011 3:26 PM CDT Respiratory Rate 16 07/22/2011 3:26 PM CDT Oxygen Saturation 95% 07/22/2011 3:26 PM CDT Inhaled Oxygen Concentration - - Weight 99.8 kg (220 lb) 07/22/2011 3:26 PM CDT Height 170.2 cm (5' 7 ) 07/22/2011 3:26 PM CDT Body Mass Index 34.46 07/22/2011 3:26 PM CDT Plan of Treatment Health Maintenance Due Date Last Done Comments LIPID TESTING 1985 MAMMOGRAM 1985 PAP SMEAR 1985 HIV SCREENING 1998 HEPATITIS C SCREENING 11/27/2001 DTAP/TDAP/TD VACCINES (1 - Tdap) 2002 HEPATITIS B VACCINE (1 of 3 - 19+ 3-dose series) 2002 COVID-19 VACCINE (2023-2 5 season) 2024 INFLUENZA VACCINE (#1) 2024 DEPRESSION SCREENING 11/06/2024 ZOSTER VACCINE (1 of 2) 2033 HIB VACCINE Aged Out No longer eligi ble based on patient's age to complete this topic HPV VACCINE Aged Out No longer eligi ble based on patient's age to complete this topic MENINGOCOCCAL (Group B) VACC INE SHARED DECISION-MAKING Aged Out No longer eligibl e based on patient's age to complete this topic MENINGOCOCCAL GROUPS A/C/Y/W VACCINE Aged Out No longer eligible b ased on patient's age to complete this topic PNEUMOCOCCAL VACCINE Aged Out No long er eligible based on patient's age to complete this topic
[2025-01-21 11:30] LABS: BEDSIDEPREGUCG Negative (Negative)
[2025-01-21 12:05] VITALS: BP 150/101; PULSE 71; RESP 16; O2SAT 100
--- NOTE | 2025-01-21 12:51 | ED_ITS ---
HPI - Chest Pain General Chief Complaint: Chest Pain Stated Complaint: chest pain Time Seen by Provider: 01/21/25 12:23 Source: patient Mode of arrival: ambulatory Limitations: no limitations History of Present Illness HPI narrative: This is a 39 year old female who presents to the ED for chief complaint of chest pain ongoing for the past week. Patient states the pain has been continuous but comes and goes in severity. States it is primarily located on the left center of the chest and does not radiate. Denies any specific pattern to the pain. Denies association with exertion. Denies associated syncope, lightheadedness, vomiting, numbness, weakness. States that she has intermittent nausea. Denies recent illness, fevers, chills, cough, shortness of breath, leg swelling. Denies history of estrogen use, VTE history, recent immobilization or hospitalization. Related Data Home Medications ?Medication ?Instructions ?Recorded ?Confirmed ?Last Taken ?Type aspirin 81 mg tablet,delayed 81 mg PO DAILY 11/22/21 12/12/22 Unknown History release (Adult Low Dose Aspirin) Allergies Allergy/AdvReac Type Severity Reaction Status Date / Time amoxicillin Allergy Mild ITCHING Verified 12/12/22 07:17 clavulanic acid Allergy Mild ITCHING Verified 12/12/22 07:17 lisinopril AdvReac Intermediate Headaches Verified 12/12/22 07:17 Review of Systems 2 Review of Systems: All systems as dictated in HPI [facility] Past Medical History Medical History Adult BMI 33.0-33.9 kg/sq m BMI 29.0-29.9,adult BMI 30.0-30.9,adult BMI 31.0-31.9,adult BMI 32.0-32.9,adult BMI 34.0-34.9,adult Tobacco abuse Surgical History Surgical History H/O: hysterectomy Family History Family History Father Family history of diabetes mellitus in first degree relative Diabetes mellitus Mother Diabetes mellitus Heart disease Hypertension Sibling Obesity Sibling Asthma Obesity Sibling Depression Other Family history of cardiovascular disease Family history of elevated blood lipids Family history of lung cancer Social History Social History Smoking packs per day: 0.25 Smoking cigarettes per day: 5.0 Years smoked: 15 Smoking pack-years: 3.75 Smoking status: Former smoker Tobacco type: cigarettes Second hand tobacco smoke exposure: No Smoking end date: 08/22/21 Alcohol intake: never Substance use: never Substance use type: does not use Living arrangements: with family Occupation/Education: 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 HEAD: Normocephalic, atraumatic. EYES: PERRLA and EOMI. ENT: Nares clear, no rhinorrhea or epistaxis. Mucous membranes moist. Oropharynx without tonsillar hypertrophy exudate or other lesions. NECK: Supple. No adenopathy or masses. CHEST: No respiratory distress. Clear to auscultation. No wheezes rales or rhonchi HEART: Regular rate and rhythm. No murmur heard. Normal peripheral pulses. ABDOMEN: Soft, nontender, nondistended, normal active bowel sounds. MSK: Normal range of motion. No edema. SKIN: Warm, dry, no rash. NEURO: Alert and oriented x4. No focal deficits. PSYCH: Normal mood and affect. Course Vital Signs Vital signs: Vital Signs Temperature 98.6 F 01/21/25 10:04 Pulse Rate 84 01/21/25 10:04 Respiratory Rate 16 01/21/25 10:04 Blood Pressure 155/97 H 01/21/25 10:04 Pulse Oximetry 100 01/21/25 10:04 Oxygen Delivery Room Air 01/21/25 10:04 Temperature 97.8 F 01/21/25 14:14 Pulse Rate 72 01/21/25 14:14 Respiratory Rate 16 01/21/25 14:14 Blood Pressure 126/80 01/21/25 14:14 Pulse Oximetry 98 01/21/25 14:14 Oxygen Delivery Room Air 01/21/25 12:22 MDM - Chest Pain MDM Narrative Medical decision making narrative: This is a with 39-year-old female who presents to the ED for chief complaint of left-sided chest pain for the past week. Vitals are normal. Physical exam is benign overall. EKG shows no acute ischemic findings. Lab work is unremarkable overall. 0 and 3 hour troponins are normal. Chest x-ray negative. PERC rule negative. Patient will be discharged in stable condition. Supportive measures discussed and return precautions given. Patient is understanding and agreeable with plan for discharge with PCP follow-up. Lab Data 01/21/25 10:11 01/21/25 10:11 Labs: Lab Results 01/21/25 01/21/25 01/21/25 Range/Units 10:11 10:12 11:26 WBC 10.6 H (4.5-10.0) K/mm3 RBC 4.74 (4.2-5.4) M/mm3 Hgb 14.6 (12.0-15.0) g/dL Hct 41.9 (37.0-47.0) % MCV 88.4 (80-100) fl MCH 30.8 (26-34) pg MCHC 34.8 (32-36) g/dl RDW 11.6 (11.5-14.5) % Plt Count 258 (150-375) k/mm3 MPV 9.8 (7.4-10.4) fl Immature Gran % (Auto) 0.2 (0-0.5) % Neut % (Auto) 72.5 (45.5-73.1) % Lymph % (Auto) 20.4 (18.3-44.2) % Monona % (Auto) 5.1 (2.6-8.5) % Eos % (Auto) 1.5 (0-4.4) % Baso % (Auto) 0.3 (0.2-1.2) % Lymph # (Auto) 2.15 (0.9-3.2) K/mm3 Monona # (Auto) 0.5 (0.1-0.6) K/mm3 Eos # (Auto) 0.2 (0-0.3) K/mm3 Baso # (Auto) 0.0 (0.0-0.1) K/mm3 Abs Immat Gran (auto) 0.02 (0.00-0.031) K/mm3 Absolute Neuts (auto) 7.7 H (1.3-6.7) K/mm3 Absolute Nucleated RBC 0.000 (0.0-0.012) K/mm3 Nucleated RBC % 0.0 (0.0-0.2) % PT 12.7 (11.1-14.7) Seconds INR 0.9 APTT 25.4 (22.3-36.8) Seconds Sodium 138 (137-145) mmol/L Potassium 3.8 (3.4-5.0) mmol/L Chloride 102 (98-107) mmol/L Carbon Dioxide 25 (22-30) mmol/L Anion Gap 11 (4-12) mmol/L BUN 7 (7-17) mg/dL Creatinine 1.02 H (0.7-1.0) mg/dL Estim Creat Clear Calc 78 ml/min Estimated GFR 60 (59 - ) Glucose 100 (65-110) mg/dL Calcium 9.4 (8.4-10.2) mg/dL Total Bilirubin 0.3 (0.2-1.3) mg/dL AST 21 (14-36) U/L ALT 22 (6-35) U/L Alkaline Phosphatase 55 (38-126) U/L Troponin I < 0.012 (0.000-0.034) ng/mL Total Protein 8.0 (6.3-8.2) g/dL Albumin 4.5 (3.5-5.1) g/dL Lipase 43 (23-300) U/L POC Urine HCG, Qual Negative (Negative) 01/21/25 Range/Units 13:02 WBC (4.5-10.0) K/mm3 RBC (4.2-5.4) M/mm3 Hgb (12.0-15.0) g/dL Hct (37.0-47.0) % MCV (80-100) fl MCH (26-34) pg MCHC (32-36) g/dl RDW (11.5-14.5) % Plt Count (150-375) k/mm3 MPV (7.4-10.4) fl Immature Gran % (Auto) (0-0.5) % Neut % (Auto) (45.5-73.1) % Lymph % (Auto) (18.3-44.2) % Monona % (Auto) (2.6-8.5) % Eos % (Auto) (0-4.4) % Baso % (Auto) (0.2-1.2) % Lymph # (Auto) (0.9-3.2) K/mm3 Monona # (Auto) (0.1-0.6) K/mm3 Eos # (Auto) (0-0.3) K/mm3 Baso # (Auto) (0.0-0.1) K/mm3 Abs Immat Gran (auto) (0.00-0.031) K/mm3 Absolute Neuts (auto) (1.3-6.7) K/mm3 Absolute Nucleated RBC (0.0-0.012) K/mm3 Nucleated RBC % (0.0-0.2) % PT (11.1-14.7) Seconds INR APTT (22.3-36.8) Seconds Sodium (137-145) mmol/L Potassium (3.4-5.0) mmol/L Chloride (98-107) mmol/L Carbon Dioxide (22-30) mmol/L Anion Gap (4-12) mmol/L BUN (7-17) mg/dL Creatinine (0.7-1.0) mg/dL Estim Creat Clear Calc ml/min Estimated GFR (59 - ) Glucose (65-110) mg/dL Calcium (8.4-10.2) mg/dL Total Bilirubin (0.2-1.3) mg/dL AST (14-36) U/L ALT (6-35) U/L Alkaline Phosphatase (38-126) U/L Troponin I < 0.012 (0.000-0.034) ng/mL Total Protein (6.3-8.2) g/dL Albumin (3.5-5.1) g/dL Lipase (23-300) U/L POC Urine HCG, Qual (Negative) Discharge Plan Discharge Clinical Impression: Chest pain Patient Disposition: Home, Self-Care Condition: Stable Instructions: Antibiotic Form Additional Instructions: Exam and imaging today are reassuring overall. Please follow-up with PCP regarding continued chest pain. If you have any new or worsening symptoms please return to the ER for further evaluation. Patient Language: Togolese Prescriptions: No Action clotrimazole 1 % cream 1 applic topical BID 28 Days Qty: 30 0RF baclofen 10 mg tablet 10 mg PO TID 5 Days Qty: 15 0RF aspirin [Adult Low Dose Aspirin] 81 mg tablet,delayed release (DR/EC) 81 mg PO DAILY amlodipine 5 mg tablet 5 mg PO DAILY Qty: 90 3RF metoprolol succinate 50 mg tablet extended release 24 hr See Rx Instructions .ROUTE .COMPLEX Qty: 90 3RF Dose Instruction: TAKE 1 TABLET DAILY Rx Instructions: TAKE 1 TABLET DAILY Follow-up/Referrals: Domenic Elliott MD [Physician] - Time of Disposition: 13:57 Quality HEART score for chest pain patients History: slightly suspicious ECG: normal Age: < or = to 45 years Risk factors: no risk factors known Troponin: < or = to 1x normal limit Heart score: 0
[2025-01-21] MEDS: ONDANSETRON INJ 4 MG/2 ML VIAL IV PUSH (13:07)
[2025-01-21] MEDS: KETOROLAC 30 MG/ML VIAL (*BKC) IV PUSH (13:07)
[2025-01-21] MEDS: SODIUM CHLORIDE 0.9% IV 1,000 ML 999 ML IV CONT (13:08)
[2025-01-21 13:43] LABS: Troponin I < 0.012 ng/mL (0.000-0.034)
[2025-01-21 14:11] VITALS: BP 146/89; PULSE 74; RESP 16; O2SAT 98
--- OUTSIDE RECORDS SUMMARY | 2025-01-21 14:13 | XMS_ITS | Clinical Summary ---
Author Organization [address] lt Address [address] [place] [address] Care Team Providers Care Clean Rice Broker Name Role Phone Nickolas Tony MD Primary Care Provider [phone] Allergies No known active allergies Medications metoprolol [...] 10/18/2024 Assessment & Plan (10/18/2024 12:10 PM PRECISION AGRICULTURE TECHNICIAN): Abnormality seen on last work up in 12/30, will repeat at this time and follow up on results Polycythemia 01/16/2024 Annual physical exam 04/26/2023 Assessment & Plan (04/26/2023 10:30 AM CDT): Voices no concerns or complaints Hypertension, essential 03/27/2023 Assessment & Plan (10/18/2024 9:03 AM PRECISION AGRICULTURE TECHNICIAN): - Stable and at goal - Continue Metoprolol 50 mg daily and Amlodipine 5 mg daily Assessment & Plan (01/16/2024 2:40 PM CDT): Stable, well controlled BP at goal at visit; 112/76 Continue Metoprolol 50 mg daily and Amlodipine 5 mg daily Assessment & Plan (12/15/2023 1:00 PM PRECISION AGRICULTURE TECHNICIAN): Stable, well controlled BP at goal at visit; 122/78 Continue Metoprolol 50 mg daily and Amlodipine 5 mg daily Assessment & Plan (03/27/2023 2:15 PM CDT): Continue Toprol 50 mg and amlodipine 5 mg daily Anxiety 03/27/2023 Assessment & Plan (10/18/2024 9:02 AM PRECISION AGRICULTURE TECHNICIAN): - much improved, no issues at this time - continue Wellbutrin 150 mg daily Assessment & Plan (01/16/2024 2:38 PM CDT): Stop Lexapro; felt numb; no feelings/emotions Did not like how Xanax made her feel; BuSpar made her extremely tired Start Wellbutrin 150 mg daily Follow up 8 weeks Assessment & Plan (12/15/2023 12:59 PM PRECISION AGRICULTURE TECHNICIAN): Not well controlled, has been having increased [...] Department Care Team Description 11/01/2024 8:15 AM PRECISION AGRICULTURE TECHNICIAN E-Visit [facility] Virtual Care [address] [place] [phone] Essie Ramirez NP Your Medications 11/01/2024 Patient Self-Triage [facility] [address] [place] [id number] Mychart, Generic Provider from Last 3 Months [...] often do you attend chur ch or jain services? More than 4 times per year 04/26/2023 Do you belong to any clubs o r organizations such as uatsdin groups, unions, fraternal or athletic groups, or [...] staff should administer the PHQ-9) 0 10/18/2024 [facility] Occupat ional Health - Occupational Stress [...] on file Legal Sex Female 10:05 AM PRECISION AGRICULTURE TECHNICIAN Gender Identity Female 09/05/2024 5:13 PM CDT [...] Comments Blood Pressure 120/72 10/18/2024 8:29 AM PRECISION AGRICULTURE TECHNICIAN Pulse 75 10/18/2024 8:29 AM PRECISION AGRICULTURE TECHNICIAN Temperature 36.4 C (97.5 F) 10/18/2024 8:29 AM PRECISION AGRICULTURE TECHNICIAN Respiratory Rate 16 01/16/2024 1:57 PM CDT Oxygen Saturation 98% 10/18/2024 8:29 AM PRECISION AGRICULTURE TECHNICIAN Inhaled Oxygen Concentration - - Weight 90.7 kg (200 lb) 10/18/2024 8:29 AM PRECISION AGRICULTURE TECHNICIAN Height 172.7 cm (5' 7.99 ) 10/18/2024 8:29 AM CS T Body Mass Index 30.42 10/18/2024 8:29 AM PRECISION AGRICULTURE TECHNICIAN Plan of Treatment Health Maintenance Due Date [...] HEPATITIS C ANTIBODY Routine 10/18/2024 8:55 AM PRECISION AGRICULTURE TECHNICIAN Encounter for hepatitis C screening test for low risk patient SCREENING MAMMOGRAM BILATERAL W LILY Schedule Routine, Read Routine (OP Routine) 09/10/2024 11:54 AM PRECISION AGRICULTURE TECHNICIAN Screening mammogram for breast cancer from Last 3 Months or Most Recently Relevant to Health Maintenance Results * Hepatitis C antibody Blood (10/18/2024 8:55 AM PRECISION AGRICULTURE TECHNICIAN) Hep C Ab Nonreactive Nonreactive Comment: Interpretive [...] revised on 2020. Blood 10/18/2024 8:55 AM PRECISION AGRICULTURE TECHNICIAN 10/18/2024 4:21 PM PRECISION AGRICULTURE TECHNICIAN us Nickolas Tony MD LAB MICROBIOLOGY - GENERA L ORDERABLES Final Result [facility] [address] [place] [address] * SCREENING MAMMOGRAM BILATERAL W LILY (09/10/2024 11:54 AM PRECISION AGRICULTURE TECHNICIAN) Anatomical Region Laterality Modality Breast Bilateral Mammography 09/10/2024 12:2 4 PM PRECISION AGRICULTURE TECHNICIAN Impressions 09/10/2024 12:24 PM PRECISION AGRICULTURE TECHNICIAN No evidence of malignancy in either breast. FINAL ASSESSMENT: BI-RADS Category 1: Negative. RECOMMENDATION: Recommend return for annual screening mammogram in 12 months. Recommend annual screening breast MRI given significant family history of mother and grandmother diagnosed with breast and ovarian cancer. Electronically signed by: NELLY VALDEZ MD Narrative 09/10/2024 12:24 PM PRECISION AGRICULTURE TECHNICIAN EXAMINATION: BILATERAL SCREENING MAMMOGRAM COMPARISON: Baseline study [...] Most Recently Relevant to Health Maintenance Insurance [facility] CHOICE PLUS [employer]OS [employer] OOS WORKERS COMPENSATION GENERIC ESIS WC Care Teams Clean Rice Broker Relationship Specialty Start Date End [place] [address] PCP - General Family Medicine 10/18/24
--- OUTSIDE RECORDS SUMMARY | 2025-01-21 14:13 | XMS_ITS | Clinical Summary ---
Author Organization [facility] Address [address] [place] [phone] Phone Care Team Providers Care Criminal Profiler Name Role Phone Unavailable Primary Care Provider Unavailabl e Social History Tobacco Use Types Packs/Day Years Used Date Smoking Tobacco: Never Assessed Comments Unknown Sex and Gender Information Value Date Recorded Sex Assigned at Not on file Legal Sex Female 11:25 AM PARA EDUCATOR Gender Identity Not on file Sexual Orientation [...]
--- OUTSIDE RECORDS SUMMARY | 2025-01-21 14:13 | XMS_ITS | Clinical Summary ---
Author Organization [facility] Address [address] [place] [address] Care Team Providers Care Fish Filleter Name Role Phone Unavailable Primary Care Provider Unavailabl e Source Comments [facility],non-owned Affiliates and Associated Physician Practices is amultiple site organization consisting of ambulatory clinics and hospital sitesin [place], [place], [place] and [place]. This disclosure is being madepursuant to the Care Everywhere program and may not contain all information available regarding this patient. Last updated 18.[facility] mCASH Allergies No known active allergies Social History [...]
--- OUTSIDE RECORDS SUMMARY | 2025-01-21 14:13 | XMS_ITS | Encounter Summary ---
Author Organization [facility] Address [address] [place] [address] Care Team Providers Care Chain Tender Name Role Phone Domenic Elliott MD Primary Care Provider [phone] Encounter Details Date Type Department Care Team (Latest Contact Info) Description 06/15/2005 Outpatient Historical [facility] Jaime Sweeney MD [address] [place] [id number] HYPERTROPHY OF BREAST (Primary Dx) Social History Tobacco Use Types Packs/Day Years Used Date Smoking Tobacco: Never Assessed Comments Unknown Sex and Gender Information Value Date Recorded Sex Assigned at Not on file Legal Sex Female 5:10 AM FREIGHT RECEIVER Gender Identity Not on file Sexual Orientation [...] HEMATOLOGY ORDERABLES Final Result Performing Organization Address [facility] Co de Phone Number INTERFACE SYSTEM Refer to clinic/hospital department documented in this encounter Visit Diagnoses Diagnosis Hypertrophy of breast- Primary documented in this encounter Care Teams Chain Tender Relationship Specialty Start Date End Date Domenic Elliott MD [address] [place] [address] PCP - General Family Practice 02/18/20 documented as of this encounter
--- OUTSIDE RECORDS SUMMARY | 2025-01-21 14:13 | XMS_ITS | Referral Summary ---
Author Organization [address] lt Address [address] [address] Care Team Providers Care Jive Developer Name Role Phone Nickolas Tony MD Primary Care Provider [phone] Encounters Date Type Department Care Team Description 11/01/2024 8:15 AM NETWORK COORDINATOR E-Visit [facility] Virtual Care [address] [place] [phone] Essie Ramirez NP Your Medications 11/01/2024 Patient Self-Triage [facility] [address] [place] [address] Mychart, Generic Provider from Last [...] 10/18/2024 Assessment & Plan (10/18/2024 12:10 PM NETWORK COORDINATOR): Abnormality seen on last work up in 12/30, will repeat at this time and follow up on results Polycythemia 01/16/2024 Annual physical exam 04/26/2023 Assessment & Plan (04/26/2023 10:30 AM CDT): Voices no concerns or complaints Hypertension, essential 03/27/2023 Assessment & Plan (10/18/2024 9:03 AM NETWORK COORDINATOR): - Stable and at goal - Continue Metoprolol 50 mg daily and Amlodipine 5 mg daily Assessment & Plan (01/16/2024 2:40 PM CDT): Stable, well controlled BP at goal at visit; 112/76 Continue Metoprolol 50 mg daily and Amlodipine 5 mg daily Assessment & Plan (12/15/2023 1:00 PM NETWORK COORDINATOR): Stable, well controlled BP at goal at visit; 122/78 Continue Metoprolol 50 mg daily and Amlodipine 5 mg daily Assessment & Plan (03/27/2023 2:15 PM CDT): Continue Toprol 50 mg and amlodipine 5 mg daily Anxiety 03/27/2023 Assessment & Plan (10/18/2024 9:02 AM NETWORK COORDINATOR): - much improved, no issues at this time - continue Wellbutrin 150 mg daily Assessment & Plan (01/16/2024 2:38 PM CDT): Stop Lexapro; felt numb; no feelings/emotions Did not like how Xanax made her feel; BuSpar made her extremely tired Start Wellbutrin 150 mg daily Follow up 8 weeks Assessment & Plan (12/15/2023 12:59 PM NETWORK COORDINATOR): Not well controlled, has been having increased [...] week 04/26/2023 How often do you attend [facility] or anglican services? More than 4 times per year 04/26/2023 Do you belong to any clubs o r organizations such as adventist groups, unions, fraternal or athletic groups, or [...] staff should administer the PHQ-9) 0 10/18/2024 [facility] of Occupat ional Health - Occupational [...] place to sleep or slept in a penitentiary (including now)? No 04/26/2023 Comments No Sex and Gender Information Value Date Recorded Sex Assigned at Not on file Legal Sex Female 10:05 AM NETWORK COORDINATOR Gender Identity Female 09/05/2024 5:13 PM CDT Sexual Orientation Straight 09/05/2024 5: 13 PM CDT Last Filed Vital Signs Vital Sign Reading Time Taken Comments Blood Pressure 120/72 10/18/2024 8:29 AM NETWORK COORDINATOR Pulse 75 10/18/2024 8:29 AM NETWORK COORDINATOR Temperature 36.4 C (97.5 F) 10/18/2024 8:29 AM NETWORK COORDINATOR Respiratory Rate 16 01/16/2024 1:57 PM CDT Oxygen Saturation 98% 10/18/2024 8:29 AM NETWORK COORDINATOR Inhaled Oxygen Concentration - - Weight 90.7 kg (200 lb) 10/18/2024 8:29 AM NETWORK COORDINATOR Height 172.7 cm (5' 7.99 ) 10/18/2024 8:29 AM CS T Body Mass Index 30.42 10/18/2024 8:29 AM NETWORK COORDINATOR Plan of Treatment Not on file Procedures Procedure Name Priority Date/Time Associated Diagnosis Comments HEPATITIS C ANTIBODY Routine 10/18/2024 8:55 AM NETWORK COORDINATOR Encounter for hepatitis C screening test for low risk patient SCREENING MAMMOGRAM BILATERAL W LILY Schedule Routine, Read Routine (OP Routine) 09/10/2024 11:54 AM NETWORK COORDINATOR Screening mammogram for breast cancer from Last 3 Months or Most Recently Relevant to Health Maintenance Results * Hepatitis C antibody Blood (10/18/2024 8:55 AM NETWORK COORDINATOR) Hep C Ab Nonreactive Nonreactive Comment: Interpretive [...] revised on 2020. Blood 10/18/2024 8:55 AM NETWORK COORDINATOR 10/18/2024 4:21 PM NETWORK COORDINATOR us Nickolas Tony MD LAB MICROBIOLOGY - GENERA L ORDERABLES Final Result [facility] [address] [place] [address] * SCREENING MAMMOGRAM BILATERAL W LILY (09/10/2024 11:54 AM NETWORK COORDINATOR) Anatomical Region Laterality Modality Breast Bilateral Mammography 09/10/2024 12:2 4 PM NETWORK COORDINATOR Impressions 09/10/2024 12:24 PM NETWORK COORDINATOR No evidence of malignancy in either breast. FINAL ASSESSMENT: BI-RADS Category 1: Negative. RECOMMENDATION: Recommend return for annual screening mammogram in 12 months. Recommend annual screening breast MRI given significant family history of mother and grandmother diagnosed with breast and ovarian cancer. Electronically signed by: NELLY VALDEZ MD Narrative 09/10/2024 12:24 PM NETWORK COORDINATOR EXAMINATION: BILATERAL SCREENING MAMMOGRAM COMPARISON: Baseline study [...] Most Recently Relevant to Health Maintenance Insurance [facility] CHOICE PLUS [employer] OOS [employer] ACCESS OOS WORKERS COMPENSATION GENERIC ESIS WC Care Teams Jive Developer Relationship Specialty Start Date [place] [address] PCP - General Family Medicine 10/18/24
--- OUTSIDE RECORDS SUMMARY | 2025-01-21 14:13 | XMS_ITS | Clinical Summary ---
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 [id number] Care Teams Town Justice Relationship Specialty Start Date End Date Domenic Elliott MD [address] [place] [id number] PCP - General Family Practice 02/18/20
--- OUTSIDE RECORDS SUMMARY | 2025-01-21 14:13 | XMS_ITS | Clinical Summary ---
Author Organization [facility] Address [address] [place] [address] Care Team Providers Care Staining Machine Operator Name Role Phone None, Provider MD Primary Care Provider Unavaila ble Allergies No known active allergies Medications albuterol sulfate HFA 108 (90 Base) MCG/ACT inhaler Inhale 2 puffs into the lungs every 6 (six) hours as needed for Wheezing. 18 g 10/27/2024 Active Encounters Date Type Department Care Team Description 10/27/2024 9:18 AM VETERINARY BACTERIOLOGIST - 10/27/2024 10:49 AM VETERINARY BACTERIOLOGIST Emergency [facility] Emergency Room [id number] [place] [address] Grupo Causey MD URI Discharge Disposition: Home [...] Comments Blood Pressure 136/77 10/27/2024 9:24 AM VETERINARY BACTERIOLOGIST Pulse 88 10/27/2024 9:24 AM VETERINARY BACTERIOLOGIST Temperature 37.8 C (100 F) 10/27/2024 9:24 AM VETERINARY BACTERIOLOGIST Respiratory Rate 18 10/27/2024 9:24 AM VETERINARY BACTERIOLOGIST Oxygen Saturation 99% 10/27/2024 9:24 AM VETERINARY BACTERIOLOGIST Inhaled Oxygen Concentration - - Weight 80.7 kg (177 lb 14.6 oz) 10/27/2024 9:24 AM VETERINARY BACTERIOLOGIST Height 168.9 cm (5' 6.5 ) 10/27/2024 9:24 AM VETERINARY BACTERIOLOGIST Body Mass Index 28.29 10/27/2024 9:24 AM VETERINARY BACTERIOLOGIST Plan of Treatment Health Maintenance Due Date [...] XR CHEST PA+LAT STAT 10/27/2024 10:22 AM VETERINARY BACTERIOLOGIST INFLUENZA A & B STAT 10/27/2024 9:23 AM VETERINARY BACTERIOLOGIST CORONAVIRUS (COVID 19) STAT 10/27/2024 9:23 AM VETERINARY BACTERIOLOGIST from Last 3 Months Results * XR CHEST PA+LAT (10/27/2024 10:22 AM VETERINARY BACTERIOLOGIST) Anatomical Region Laterality Modality Chest Radiographic Lissa ging 10/27/2024 10:2 4 AM VETERINARY BACTERIOLOGIST Impressions 10/27/2024 10:26 AM VETERINARY BACTERIOLOGIST IMPRESSION: Evolving/developing pneumonia with patchy right middle lobe airspace opacities. No focal consolidation or effusion. Referred By: Interpreted By: Mata Newman MD, 10/27/2024 10:24 AM Narrative 10/27/2024 10:26 AM VETERINARY BACTERIOLOGIST [address] [place] [address] EXAMINATION: XR CHEST PA+LAT INDICATIONS: Cough, SOB [...] Procedure Note Mata Newman MD - 10/27/2024 [facility] [address] [place] [address] EXAMINATION: XR CHEST PA+LAT INDICATIONS: Cough, SOB [...] * CORONAVIRUS (COVID-19) MOLECULAR (10/27/2024 9:23 AM VETERINARY BACTERIOLOGIST) CORONAVIRUS SARS COV 2 RNA NEGATIVE NEGATIVE 10/27/2024 10:11 AM VETERINARY BACTERIOLOGIST [facility] Comment: NEGATIVE RESULTS DO NOT RULE [...] SARS-COV-2. SPECIMEN TYPE NASAL 10/27/2024 9:23 AM VETERINARY BACTERIOLOGIST [facility] NASOPHARYNGEAL SWAB / Unknown 10/27/2024 9:23 AM VETERINARY BACTERIOLOGIST Grupo Causey MD MICROBIOLOGY - GENERAL ORDERABLES Final Result Performing Organization Address [facility]/ZIP Co de Phone Number [facility] [address] [place] [address], [place] [phone] * (ABNORMAL) INFLUENZA A & B (10/27/2024 9:23 AM VETERINARY BACTERIOLOGIST) SPECIMEN TYPE NASOPHARYNGEAL SWAB 10/27/2024 10:02 AM VETERINARY BACTERIOLOGIST [facility] INFLUENZA A NEGATIVE NEGATIVE 10/27/2024 10:11 AM VETERINARY BACTERIOLOGIST [facility] INFLUENZA B POSITIVE(A) NEGATIVE 10/27/2024 10:11 AM VETERINARY BACTERIOLOGIST [facility] NASOPHARYNGEAL SWAB / Unknown 10/27/2024 9:23 AM VETERINARY BACTERIOLOGIST Grupo Causey MD MICROBIOLOGY - GENERAL ORDERABLES Final Result Performing Organization Address [facility]/ZIP Co de Phone Number [facility] [address] [place] [address], [place] [phone] from Last 3 Months Insurance Care Teams Staining Machine Operator Relationship Specialty Start Date End Date None, Provider, PCP - General UNKNOWN PHYSICIAN SPECIALTY 10/27/24
[2025-01-21 14:14] VITALS: BP 126/80; PULSE 72; RESP 16; TEMP 36.6; O2SAT 98
== END 2025-01-21 14:19 | disposition home or self-care (01) ==
PROVIDERS: Student in an Organized Health Care Education/Training Program; Emergency Provider Physician Assistant; PCP Nurse Practitioner
DX: R07.9 Chest pain, unspecified (principal); Z87.891 Personal history of nicotine dependence
CPT/HCPCS: 36415; 71046; 80053; 81025; 83690; 84484; 85025; 85610; 85730; 93005; 96361; 96374; 96375; 99284; J1885; J2405; J7030

== ENCOUNTER 2025-07-09 09:34 | Emergency (ER) | payer BC, SELFPAY ==
[2025-07-09 09:44] VITALS: BP 132/89; PULSE 82; RESP 16; TEMP 36.6; O2SAT 98
[2025-07-09 10:00] LABS: EDSTREPNEGPOS1 Negative (Negative)
[2025-07-09 10:01] LABS: EDCOVIDSCREEN Negative (Negative); EDINFLUASCREEN Negative (Negative); EDINFLUBSCREEN Negative (Negative)
--- NOTE | 2025-07-09 10:17 | ED_ITS ---
HPI - URI/Sore Throat General Chief Complaint: Upper Respiratory Infection Stated Complaint: CONGESTION/JAW PAIN/EAR PAIN/DIARRHEA Time Seen by Provider: 07/09/25 10:00 Source: patient and RN notes reviewed Mode of arrival: ambulatory Limitations: no limitations History of Present Illness HPI Narrative: 39-year-old female presents Express Care complaining of upper respiratory symptoms for approximately 1 week. Patient says her symptoms are getting worse. Patient reports sinus congestion, mucopurulent nasal drainage, fevers, cough, sore throat, diarrhea, headache. Patient says she has only been taking Mucinex. She has not been taking anything for fevers. Patient has any chest pain, difficulty breathing, nausea, vomiting, or any other symptoms. Related Data Home Medications ?Medication ?Instructions ?Recorded ?Confirmed ?Last Taken ?Type aspirin 81 mg tablet,delayed 81 mg PO DAILY 11/22/21 0 06/05/25 Unknown History release (Adult Low Dose Aspirin) cholecalciferol (vitamin D3) 125 125 mcg PO DAILY 03/3007/09/25 Unknown History mcg (5,000 unit) capsule Allergies Allergy/AdvReac Type Severity Reaction Status Date / Time amoxicillin Allergy Mild ITCHING Verified 07/09/25 09:39 clavulanic acid Allergy Mild ITCHING Verified 07/09/25 09:39 lisinopril AdvReac Intermediate Headaches Verified 07/09/25 09:39 Review of Systems Review of Systems: CONSTITUTIONAL: Positive for fevers. Negative for chills, body aches, or sweats. EYES: Denies visual changes, redness, or discharge. ENT: Positive for rhinorrhea, congestion, sinus pressure, sore throat. Negative for otalgia. CARDIOVASCULAR: Denies chest pain, palpitations, or edema. RESPIRATORY: Positive for cough. Negative for dyspnea or wheezing. GASTROINTESTINAL: Denies abdominal pain, nausea, vomiting, or diarrhea. GENITOURINARY: Denies dysuria or hematuria. SKIN: Denies rash or itching. MUSCULOSKELETAL: Denies back pain, joint pain, or myalgia. NEUROLOGIC: Denies headache, numbness, or weakness. PSYCHIATRIC: Denies anxiety or depression. All other systems reviewed are negative, except as documented in HPI. [facility] Past Medical History Medical History Night sweats Rib pain on left side Numbness and tingling in both hands Wheezing on auscultation Diverticulitis of large intestine with perforation without bleeding BMI 29.0-29.9,adult BMI 30.0-30.9,adult BMI 32.0-32.9,adult BMI 31.0-31.9,adult Adult BMI 33.0-33.9 kg/sq m Tobacco abuse BMI 34.0-34.9,adult Surgical History Surgical History H/O: hysterectomy Family History Family History Father Family history of diabetes mellitus in first degree relative Diabetes mellitus Mother Diabetes mellitus Heart disease Hypertension Sibling Obesity Sibling Asthma Obesity Sibling Depression Other Family history of cardiovascular disease Family history of elevated blood lipids Family history of lung cancer Social History Social History Smoking packs per day: 0.25 Smoking cigarettes per day: 5.0 Years smoked: 15 Smoking pack-years: 3.75 Smoking status: Former smoker Tobacco type: cigarettes Second hand tobacco smoke exposure: No Smoking end date: 08/22/21 Alcohol intake: never Substance use: never Substance use type: does not use Living arrangements: with family Occupation/Education: occupation 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 There is no relevant family history pertinent to the patient complaint. Exam Narrative: GENERAL: This is a well-nourished, well-developed adult, in no apparent distress. They are non ill-appearing, nontoxic appearing. HEAD: normocephalic, atraumatic. EYES: Sclera clear/white. Vision is grossly intact. Conjunctiva normal bilaterally. Extraocular movements intact. EARS: External ears normal, auditory canals clear and without drainage, TMs without erythema or perforation. Hearing grossly intact. NOSE: External nose normal with no obvious nasal discharge, nasal turbinates erythematous with exudate present, no rhinorrhea. Maxillary sinus tenderness to palpation. THROAT: Mucous membranes moist, posterior pharynx erythematous without exudate. Uvula is midline. Postnasal drip present. NECK: Neck supple, non-tender without lymphadenopathy, masses or thyromegaly. CARDIOVASCULAR: Regular rate and rhythm without murmurs, gallops, or rubs. RESPIRATORY: Clear to auscultation. Breath sounds equal bilaterally. No wheezes, rales, or rhonchi. SKIN: warm, Dry, intact with no suspicious lesions or rash, good texture and turgor. NEURO: awake, alert, and oriented to person, place and time. There were no obvious focal neurologic abnormalities. EXTREMITIES: No joint tenderness, effusion, or edema noted. BACK: Nontender without deformity. Course Course Emergency Course: Portions of this record may have been created with voice recognition software Level of Care: Express Care Visit Vital Signs Vital signs: Vital Signs Temperature 97.9 F 07/09/25 09:44 Pulse Rate 82 07/09/25 09:44 Respiratory Rate 16 07/09/25 09:44 Blood Pressure 132/89 07/09/25 09:44 Pulse Oximetry 98 07/09/25 09:44 Temperature 97.9 F 07/09/25 09:44 Pulse Rate 82 07/09/25 09:44 Respiratory Rate 16 07/09/25 09:44 Blood Pressure 132/89 07/09/25 09:44 Pulse Oximetry 98 07/09/25 09:44 MDM - URI/Sore Throat MDM Narrative Medical decision making narrative: Rapid COVID, flu, strep were negative. A throat culture is pending. Given patient's length of symptoms in his sudden worsening of symptoms is likely she has developed a bacterial sinusitis. Will prescribe doxycycline she has an allergy to Augmentin. Patient requested fluconazole as she says she gets yeast infections with antibiotics. Advised patient only take it if she develops symptoms. Discussed physical exam findings. Advised supportive measures and signs/symptoms to go to the ER. Pt is appropriate for outpt treatment and f/u. Differential Diagnosis Differential diagnosis: Likely upper respiratory infection, sinusitis, viral infection and pharyngitis Lab Data Attestation: I reviewed the patient's lab results. Labs: Lab Results 07/09/25 07/09/25 Range/Units 09:58 09:59 POC Influenza A Ag Negative (Negative) POC Influenza B Ag Negative (Negative) POC SARS CoV-2 Ag Negative (Negative) POC Grp A Strep Screen Negative (Negative) Discharge Plan Discharge Clinical Impression: Sinusitis Qualifiers: Sinusitis location: unspecified location Chronicity: acute Recurrence: non- recurrent Qualified Code(s): J01.90 - Acute sinusitis, unspecified Patient Disposition: Home Condition: Stable Instructions: Antibiotic Form, Sinusitis (ED) Additional Instructions: Your rapid COVID, flu, strep were negative. A Throat cultures will be sent off and if it is positive for strep you will be contacted. Take the antibiotics as directed and complete the course even if you start to feel better. Wear sunscreen for going to be outside while taking doxycycline. You may use a Neti pot saline rinse 3 times a day with lukewarm distilled water You may take ibuprofen 600 mg to 800 mg every 6-8 hours. Do not exceed more than 800 mg of ibuprofen per dose. Do not exceed more than 3200 mg ibuprofen in a day. You may take up to 1000 mg Tylenol every 6-8 hours. Do not exceed 1000 mg per dose, do exceed more than 4000 mg of Tylenol in a day. Use a humidifier or vaporizer at night. Drink plenty of water. 8-10 glasses per day. Use flonase 2 times per day for 5 days then as needed Take mucinex 2 times per day and be sure to take with 8oz of water. Follow up with Primary provider in 3-5 days Please go to the ER if he develops any difficulty breathing, worsening symptoms, or any other concerns Patient Language: Turkish Prescriptions: New fluconazole 150 mg tablet 150 mg PO Q72H Qty: 2 0RF Rx Instructions: May repeat dose after 72 hours if symptoms persist. doxycycline monohydrate 100 mg capsule 100 mg PO BID 7 Days Qty: 14 0RF No Action aspirin [Adult Low Dose Aspirin] 81 mg tablet,delayed release (DR/EC) 81 mg PO DAILY amlodipine 5 mg tablet 5 mg PO DAILY Qty: 90 3RF cholecalciferol (vitamin D3) 125 mcg (5,000 unit) capsule 125 mcg PO DAILY metoprolol succinate 50 mg tablet extended release 24 hr See Rx Instructions .ROUTE .COMPLEX Qty: 90 3RF Dose Instruction: TAKE 1 TABLET DAILY Rx Instructions: TAKE 1 TABLET DAILY Follow-up/Referrals: Amy Rodriguez FNP-C [Primary Care Provider, Internal Medicine] Stand Alone Forms: Work/School Release IP Time of Disposition: 10:09
== END 2025-07-09 10:13 | disposition home or self-care (01) ==
PROVIDERS: PCP Clinical Nurse Specialist
DX: J01.90 Acute sinusitis, unspecified (principal); Z87.891 Personal history of nicotine dependence; Z20.822 Contact with and (suspected) exposure to COVID-19
CPT/HCPCS: 87081; 87426; 87804; 87880; 99213; G0463

== ENCOUNTER 2025-07-18 12:42 | Outpatient (CLI) | payer BC, SELFPAY ==
--- NOTE | 2025-07-18 12:48 | ECHO_ITS ---
Patient Info Name: Sandy Flor Age: 39 years : 1985 Gender: Female Ht: 66 in Wt: 220 lbs BSA: 2.20 m2 HR: 67 bpm BP: 141 / 103 mmHg Technical Quality: Fair Exam Date: 07/18/2025 12:57 PM Patient Status: O Admit Date: 07/18/2025 Exam Type: CA echo doppler color flow Complete two-dimensional, color flow and Doppler transthoracic echocardiogram is performed. Financial Aid Coordinator: Leora Velasco Attending Provider: Amy Rodriguez [facility] Summary 1. Complete two-dimensional, color flow and Doppler transthoracic echocardiogram is performed. 2. Left ventricular chamber dimension is normal. 3. Left ventricular systolic function is normal, estimated at 60-65. 4. The left ventricular diastolic function is normal. 5. E/e' 5 is not elevated. 6. No pulmonary hypertension, estimated pulmonary arterial systolic pressure is 24 mmHg. Left Ventricle E/e' 5 is not elevated. Left ventricular chamber dimension is normal. Left ventricular systolic function is normal, estimated at 60-65. The left ventricular diastolic function is normal. Right Ventricle Right ventricular chamber dimension is normal. Right ventricular systolic function is normal and with normal TAPSE 2.0 cm. Left Atria Left atrial chamber dimension is normal. Right Atria Right atrial chamber dimension is normal. Aortic Valve The aortic valve is trileaflet. There is no aortic valve stenosis. There is no aortic valve regurgitation. Pulmonic Valve There is no pulmonic regurgitation. Mitral Valve There is no mitral valve stenosis. There is no mitral valve regurgitation. Tricuspid Valve There is no tricuspid valve regurgitation. No pulmonary hypertension, estimated pulmonary arterial systolic pressure is 24 mmHg. Pericardium/Pleural There is no pericardial effusion. Inferior Vena Cava Normal inferior vena cava with >50% collapse upon inspiration consistent with normal right atrial pressure, 5 mmHg. Aorta The aortic root size at the sinus of Valsalva is normal. Left Ventricular Outflow Tract Name Value Normal LVOT 2D LVOT Diameter 2.0 cm LVOT Doppler LVOT Peak Velocity 96 cm/s LVOT Peak Gradient 4 mmHg LVOT Mean Gradient 3 mmHg LVOT VTI 21 cm LVOT VTI/AV VTI Ratio 0.6 LVOT Stroke Volume 64 ml LVOT CO 14.5 l/min LVOT CI 6.6 l/min/m2 Pulmonic Valve Name Value Normal PV Doppler PV Peak Velocity 102 cm/s PV Peak Gradient 4 mmHg Mitral Valve Name Value Normal MV Diastolic Function MV E Peak Velocity 69 cm/s MV A Peak Velocity 47 cm/s MV E/A 1.5 MV Decel Time (PW) 223 ms MV Annular TDI MV E/e' (Septal) 6.4 MV E/e' (Lateral) 4.8 MV E/e' (Average) 5.6 Tricuspid Valve Name Value Normal TV Regurgitation Doppler TR Peak Velocity 217 cm/s TR Peak Gradient 19 mmHg Estimated PAP/RSVP RA Pressure 5 mmHg <=5 PA Systolic Pressure 24 mmHg <36 RV Systolic Pressure 24 mmHg <36 TV Annular TDI TV Lateral Giovana s' Velocity 11.4 cm/s >=9.5 Aorta Name Value Normal Ascending Aorta Ao Root Diameter (MM) 2.6 cm Ao Root Diam Index (MM) 1.2 cm/m2 Aortic Valve Name Value Normal AV Doppler AV Peak Velocity 167 cm/s AV Peak Gradient 11 mmHg AV Mean Gradient 7 mmHg AV VTI 33 cm AV Area (Cont Eq VTI) 1.9 cm2 >=3.0 AV Area (Cont Eq Murtaza) 1.7 cm2 AV DI (Murtaza) 0.58 AV Regurgitation 2D LVOT Area 3.0 cm2 Ventricles Name Value Normal LV Dimensions 2D/MM IVS Diastolic Thickness (2D) 1.0 cm 0.6-1.0 LVID Diastole (2D) 4.3 cm 3.8-5.2 LVIW Diastolic Thickness (2D) 0.9 cm 0.6-0.9 LVID Systole (2D) 3.2 cm 2.2-3.5 LVOT Diameter 2.0 cm LV Mass (2D Cubed) 128.77 g 67.00-162.00 LV Mass Index (2D Cubed) 59 g/m2 43-95 Relative Wall Thickness (2D) 0.40 <=0.42 LV Fractional Shortening/Ejection Fraction 2D/MM LV Fractional Shortening (2D) 27 % 27-45 LV EF (2D Teichholz) 52 % LV Diastolic Volume (4C MOD) 92 ml LV EF (4C MOD) 54 % LV Diastolic Volume (2C MOD) 76 ml LV EF (2C MOD) 62 % LV Diastolic Volume (BP MOD) 87 ml 46-106 LV Diastolic Volume Index (BP MOD) 39 ml/m2 29-61 LV Systolic Volume (BP MOD) 35 ml 14-42 LV Systolic Volume Index (BP MOD) 16 ml/m2 8-24 LV EF (BP MOD) 59 % 54-74 LV Diastolic Length (4C) 8.1 cm LV Systolic Length (4C) 6.8 cm LV Stroke Volume (4C MOD) 50 ml Atria Name Value Normal LA Dimensions LA Dimension (MM) 3.5 cm 2.7-3.8 LA Volume (4C A-L) 53 ml LA Volume (BP A-L) 44 ml RA Dimensions RA Area (4C) 13.4 cm2 <=18.0 Report Signatures
--- OUTSIDE RECORDS SUMMARY | 2025-07-18 13:22 | XMS_ITS | Clinical Summary ---
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 Gender Identity Not on file Sexual [...] 4:00 PM CDT Height 172.7 cm (5' 8) 04/14/2021 4:00 PM CDT Body Mass Index 32.17 04/14/2021 4:00 PM CDT Plan of Treatment Health Maintenance Due Date Last Done Comments DTAP/TDAP/TD VACCINES (1 - Tdap) 2002 HEPATITIS B VACCINES (1 of 3 - 19+ 3-dose series) 11/07 HPV/Cotest (21-29) 2004 HPV VACCINES (1 - 3-dose SCDM series) 2010 CERVICAL CANCER SCREENING 2013 HPV/Cotest (30-65) 2013 PAP SMEAR 2013 BREAST CANCER SCREENING 2023 INFLUENZA VACCINE (#1) 2025 Insurance Care Teams Plate Shop Helper Relationship Specialty Start Date End Date Domenic Elliott MD [address] [place] [address] PCP - General Family Practice 02/18/20
--- OUTSIDE RECORDS SUMMARY | 2025-07-18 13:23 | XMS_ITS | Clinical Summary ---
Author Organization [facility] Address [address] [place] [address] Care Team Providers Care Band Aid Machine Operator Name Role Phone Unavailable Primary Care Provider Unavailabl e Source Comments [facility],non-owned Affiliates and Associated Physician Practices is amultiple site organization consisting of ambulatory clinics and hospital sitesin [place], [place], [place] and [place]. This disclosure is being madepursuant to the Care Everywhere program and may not contain all information available regarding this patient. 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
--- OUTSIDE RECORDS SUMMARY | 2025-07-18 13:23 | XMS_ITS | Clinical Summary ---
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
--- OUTSIDE RECORDS SUMMARY | 2025-07-18 13:23 | XMS_ITS | Clinical Summary ---
Author Organization [address] lt Address [address] [place] [address] Care Team Providers Care Breaker Up Name Role Phone Nickolas Tony MD Primary Care Provider [phone] Allergies No known active allergies Medications metoprolol [...] by mouth every morning 90 tablet 1 04/04/2025 Active fluconazole (Diflucan) 150 mg tablet 1 tablet, one time only, may repeat once after 4 days 2 tablet 05/14/2025 Active Active Problems Problem Noted Date Diagnosed Date Low TSH level 10/18/2024 Assessment & Plan (10/18/2024 12:10 PM APPAREL STOCK CHECKER): Abnormality seen on last work up in 12/30, will repeat at this time and follow up on results Polycythemia 01/16/2024 Annual physical exam 04/26/2023 Assessment & Plan (04/26/2023 10:30 AM CDT): Voices no concerns or complaints Hypertension, essential 03/27/2023 Assessment & Plan (10/18/2024 9:03 AM APPAREL STOCK CHECKER): - Stable and at goal - Continue Metoprolol 50 mg daily and Amlodipine 5 mg daily Assessment & Plan (01/16/2024 2:40 PM CDT): Stable, well controlled BP at goal at visit; 112/76 Continue Metoprolol 50 mg daily and Amlodipine 5 mg daily Assessment & Plan (12/15/2023 1:00 PM APPAREL STOCK CHECKER): Stable, well controlled BP at goal at visit; 122/78 Continue Metoprolol 50 mg daily and Amlodipine 5 mg daily Assessment & Plan (03/27/2023 2:15 PM CDT): Continue Toprol 50 mg and amlodipine 5 mg daily Anxiety 03/27/2023 Assessment & Plan (10/18/2024 9:02 AM APPAREL STOCK CHECKER): - much improved, no issues at this time - continue Wellbutrin 150 mg daily Assessment & Plan (01/16/2024 2:38 PM CDT): Stop Lexapro; felt numb; no feelings/emotions Did not like how Xanax made her feel; BuSpar made her extremely tired Start Wellbutrin 150 mg daily Follow up 8 weeks Assessment & Plan (12/15/2023 12:59 PM APPAREL STOCK CHECKER): Not well controlled, has been having increased [...] or ex-partner? No 04/26/2023 Social Connection and Isolation Panel Answer Date Recorded In a typical week, how many times do you talk on the phone with family, friends, or neighbors? More than three times a week 04/26/2023 How often do you get togethe r with friends or relatives? More than three times a week 04/26/2023 How often do you attend chur or scientology services? More than 4 times per year 04/26/2023 Do you belong to any clubs o r organizations such as restoration groups, unions, fraternal or athletic groups, or [...] staff should administer the PHQ-9) 0 10/18/2024 [facility] - Occupational [...] place to sleep or slept in a snf (including now)? No 04/26/2023 Comments No Sex and Gender Information Value Date Recorded Sex Assigned at Not on file Legal Sex Female 10:05 AM APPAREL STOCK CHECKER Gender Identity Female 09/05/2024 5:13 PM CDT [...] Comments Blood Pressure 120/72 10/18/2024 8:29 AM APPAREL STOCK CHECKER Pulse 75 10/18/2024 8:29 AM APPAREL STOCK CHECKER Temperature 36.4 C (97.5 F) 10/18/2024 8:29 AM APPAREL STOCK CHECKER Respiratory Rate 16 01/16/2024 1:57 PM CDT Oxygen Saturation 98% 10/18/2024 8:29 AM APPAREL STOCK CHECKER Inhaled Oxygen Concentration - - Weight 90.7 kg (200 lb) 10/18/2024 8:29 AM APPAREL STOCK CHECKER Height 172.7 cm (5' 7.99) 10/18/2024 8:29 AM CS T Body Mass Index 30.42 10/18/2024 8:29 AM APPAREL STOCK CHECKER Plan of Treatment Health Maintenance Due Date Last Done Comments DTaP/Tdap/Td Vaccine (1 - Tdap) 1994 HPV Vaccines (1 - 3-dose SCDM series) 2010 Covid-19 Vaccine ( season) 2025 07/19/2021, 06/19/2021 Influenza Vaccine (#1) 2025 , 08/06/2023, 08/07/2022, Additional history exists Breast Cancer Screening-Mammogram 09/10/2025 09/10/2024 Depression Screening 10/18/2025 10/18/2024, 01/16/2024, 12/15/2023, Additional history exists Regular Well Visit/Exam 18-64 10/18/2025 10/18/2024, 04/26/2023, 03/27/2023 Hepatitis B Screening Completed 10/18/2024 Hepatitis C Screening Completed 10/18/2024 Pneumococcal vaccine <65 Aged Out No longer eligible based on patient's age to complete this topic Varicella Vaccines Discontinued Procedures Procedure Name Priority Date/Time Associated Diagnosis Comments HEPATITIS C ANTIBODY Routine 10/18/2024 8:55 AM APPAREL STOCK CHECKER Encounter for hepatitis C screening test for low risk patient SCREENING MAMMOGRAM BILATERAL W LILY Schedule Routine, Read Routine (OP Routine) 09/10/2024 11:54 AM APPAREL STOCK CHECKER Screening mammogram for breast cancer from Last 3 Months or Most Recently Relevant to Health Maintenance Results * Hepatitis C antibody Blood (10/18/2024 8:55 AM APPAREL STOCK CHECKER) Hep C Ab Nonreactive Nonreactive Comment: Interpretive [...] revised on 2020. Blood 10/18/2024 8:55 AM APPAREL STOCK CHECKER 10/18/2024 4:21 PM APPAREL STOCK CHECKER us Nickolas Tony MD LAB MICROBIOLOGY - [facility] L ORDERABLES Final Result [id number] Department [place] [address] * SCREENING MAMMOGRAM BILATERAL W LILY (09/10/2024 11:54 AM APPAREL STOCK CHECKER) Anatomical Region Laterality Modality Breast Bilateral Mammography 09/10/2024 12:2 4 PM APPAREL STOCK CHECKER Impressions 09/10/2024 12:24 PM APPAREL STOCK CHECKER No evidence of malignancy in either breast. FINAL ASSESSMENT: BI-RADS Category 1: Negative. RECOMMENDATION: Recommend return for annual screening mammogram in 12 months. Recommend annual screening breast MRI given significant family history of mother and grandmother diagnosed with breast and ovarian cancer. Electronically signed by: NELLY VALDEZ MD Narrative 09/10/2024 12:24 PM APPAREL STOCK CHECKER EXAMINATION: BILATERAL SCREENING MAMMOGRAM COMPARISON: Baseline study [...] Most Recently Relevant to Health Maintenance Insurance [facility] CHOICE PLUS [facility] O[facility] O[facility] [employer] Care Teams Breaker Up Relationship Specialty Start Date End Date Nickolas Tony MD [address] [place] [address] PCP - General Family Medicine 10/18/24
--- OUTSIDE RECORDS SUMMARY | 2025-07-18 13:23 | XMS_ITS | Encounter Summary ---
Author Organization [facility] Address [address] [place] [address] Care Team Providers Care Service Order Dispatcher Name Role Phone Domenic Elliott MD Primary Care Provider [phone] Encounter Details Date Type Department Care Team (Latest Contact Info) Description 06/15/2005 Outpatient Historical [facility] Jaime Sweeney MD [address] [place] [id number] HYPERTROPHY OF BREAST (Primary Dx) Social History Tobacco Use Types Packs/Day Years Used Date Smoking Tobacco: Never Assessed Comments Unknown Sex and Gender Information Value Date Recorded Sex Assigned at Not on file Legal Sex Female 5:10 AM AGRONOMIST Gender Identity Not on file Sexual Orientation [...] HEMATOLOGY ORDERABLES Final Result Performing Organization Address [facility] Co de Phone Number INTERFACE SYSTEM Refer to clinic/hospital department documented in this encounter Visit Diagnoses Diagnosis Hypertrophy of breast- Primary documented in this encounter Care Teams Service Order Dispatcher Relationship Specialty Start Date End Date Domenic Elliott MD [address] [place] [address] PCP - General Family Practice 02/18/20 documented as of this encounter
--- OUTSIDE RECORDS SUMMARY | 2025-07-18 13:23 | XMS_ITS | Clinical Summary ---
Author Organization [facility] Address [address] [place] [id number] Care Team Providers Care Master [place] Name Role Phone None, Provider MD Primary Care Provider Unavaila ble Allergies No known active allergies Medications albuterol sulfate HFA 108 (90 Base) MCG/ACT inhaler Inhale 2 puffs into the lungs every 6 (six) hours as needed for Wheezing. 18 g 10/27/2024 Active Social History Tobacco Use Types Packs/Day Years [...] Comments Blood Pressure 136/77 10/27/2024 9:24 AM PHARMACY CASHIER Pulse 88 10/27/2024 9:24 AM PHARMACY CASHIER Temperature 37.8 C (100 F) 10/27/2024 9:24 AM PHARMACY CASHIER Respiratory Rate 18 10/27/2024 9:24 AM PHARMACY CASHIER Oxygen Saturation 99% 10/27/2024 9:24 AM PHARMACY CASHIER Inhaled Oxygen Concentration - - Weight 80.7 kg (177 lb 14.6 oz) 10/27/2024 9:24 AM PHARMACY CASHIER Height 168.9 cm (5' 6.5) 10/27/2024 9:24 AM PHARMACY CASHIER Body Mass Index 28.29 10/27/2024 9:24 AM PHARMACY CASHIER Plan of Treatment Health Maintenance Due Date Last Done Comments Annual Physical 1986 DTaP, Tdap and Td Vaccines ( 1 - Tdap) 2002 Hepatitis B Vaccines (1 of 3 - 19+ 3-dose series) 2002 HPV Vaccines (1 - 3-dose SCD M series) 2010 COVID-19 Vaccine (3 - 2024-2 6 season) 2025 07/19/2021, 06/19/2021 Mammogram Screening 09/10/2026 09/10/2024 Hepatitis C Completed 10/18/2024, 10/18/2024 Meningococcal B Vaccine Aged Out No l onger eligible based on patient's age to complete this topic Meningococcal Vaccine Aged Out No aubrie miguel angel eligible based on patient's age to complete this topic Pneumococcal Vaccine: Pediatrics (0 to 5 Years) and At-Risk Patients (6 to 49 Years) Aged Out No longer eligible b ased on patient's age to complete this topic RSV Immunizations Under 20 Months Aged Out No longer eligible b ased on patient's age to complete this topic Insurance Care Teams Master [place] Relationship Specialty Start Date End Date None, Provider, MD PCP - General UNKNOWN PHYSICIAN SPECIALTY 10/27/24
== END 2025-07-18 12:43 | disposition home or self-care (01) ==
PROVIDERS: PCP Clinical Nurse Specialist; Visit Provider Clinical Nurse Specialist
DX: R01.1 Cardiac murmur, unspecified (principal); R94.31 Abnormal electrocardiogram [ECG] [EKG]; I10 Essential (primary) hypertension
CPT/HCPCS: 93306